=== PATIENT | female | born 1990 | race Caucasian/White ===

== ENCOUNTER 2017-03-11 23:06 | Emergency (ER) | payer OTHER ==
[~2017-03-11] VITALS: Ht 160 cm; Wt 124.2 kg
[~2017-03-11 23:06] MED LIST: CLOT1CRE TOP; FLUO40CA PO; NYST100024 TOP
[2017-03-11 23:08] VITALS: BP 123/73; PULSE 93; RESP 16; TEMP 98; O2SAT 100
[2017-03-11] MEDS ORDERED: SODIUM CHLOR 0.9% 1000 ML INJ 1,000 ML IV SCH (23:37)
--- NOTE | 2017-03-11 23:38 | PD ---
HPI Chief Complaint: GI Complaint Time Seen by Provider: 23:36 Travel History International Travel<30 days: No Contact w/Intl Traveler<30days: No Traveled to known affect area: No History of Present Illness HPI The patient is a 26-year-old female that complains of nausea for 2 weeks. She denies any vomiting. She denies any abdominal pain, fever or diarrhea. She denies any cough or sore throat. Her last missed her period was the of last month and normal. She has had no abdominal surgery and still has her appendix and gallbladder. PFSH Past Medical History Blood Disorders: No Anxiety: Yes Depression: Yes Diminished Hearing: No Hypertension: Yes Reproductive: Yes (DYSFUNCTIONAL UTERINE BLEEDING IN PAST) Immunizations Current: Yes Migraines: Yes : 0 Social History Alcohol Use: No Tobacco Use: Yes (2- PPD) Substance Use: No Allergies-Medications (Allergen,Severity, Reaction): Coded Allergies: Amoxicillin (Verified Allergy, Severe, Hives, 07/02/16) Penicillin (Verified Allergy, Mild, Hives, 07/02/16) Uncoded Allergies: CANTELOPE MELON (Allergy, Mild, Hives, 07/26/11) HONEYDEW (Allergy, Mild, Hives, 07/26/11) Reported Meds & Prescriptions Reported Meds & Active Scripts Active No Active Prescriptions or Reported Medications Review of Systems Except as stated in HPI: all other systems reviewed are Neg Physical Exam Narrative GENERAL: The patient is alert, fairly well-hydrated, obese in no apparent distress except for the nausea. Her vital signs are normal. SKIN: Focused skin assessment warm/dry. HEAD: Atraumatic. Normocephalic. EYES: Pupils equal and round. No scleral icterus. No injection or drainage. ENT: No nasal bleeding or discharge. Mucous membranes pink and moist. NECK: Trachea midline. No JVD. CARDIOVASCULAR: Regular rate and rhythm. No murmur appreciated. RESPIRATORY: No accessory muscle use. Clear to auscultation. Breath sounds equal bilaterally. GASTROINTESTINAL: Abdomen soft, non-tender, nondistended. Hepatic and splenic margins not palpable. No guarding or rebound is present. Valencia's sign is negative. MUSCULOSKELETAL: No obvious deformities. No clubbing. No cyanosis. No edema. NEUROLOGICAL: Awake and alert. No obvious cranial nerve deficits. Motor grossly within normal limits. Normal speech. PSYCHIATRIC: Appropriate mood and affect; insight and judgment normal. Data Data Last Documented VS Vital Signs Date Time Temp Pulse Resp B/P Pulse Ox O2 Delivery O2 Flow Rate FiO2 03/12/17 00:05 16 03/12/17 00:00 99 Room Air 03/12/17 00:00 86 143/83 03/11/17 23:08 98.0 Orders Beta Hcg (Quant/Titer) (03/11/17 23:37) Complete Blood Count With Diff (03/11/17 23:37) Comprehensive Metabolic Panel (03/11/17 23:37) Lipase (03/11/17 23:37) Urinalysis - C+S If Indicated (03/11/17 23:37) Iv Access Insert/Monitor (03/11/17 23:37) Ecg Monitoring (03/11/17:37) Oximetry (03/11/17 23:37) Ondansetron Inj (Zofran Inj) (03/11/17 23:45) Sodium Chlor 0.9% 1000 Ml Inj (Ns 1000 M (03/11/17 23:37) Sodium Chloride 0.9% Flush (Ns Flush) (03/11/17 23:45) Labs Laboratory Tests Test 03/12/17 00:10 White Blood Count 13.1 TH/MM3 Red Blood Count 4.66 MIL/MM3 Hemoglobin 13.4 GM/DL Hematocrit 40.7 % Mean Corpuscular Volume 87.3 FL Mean Corpuscular Hemoglobin 28.7 PG Mean Corpuscular Hemoglobin 32.8 % Concent Red Cell Distribution Width 13.3 % Platelet Count 227 TH/MM3 Mean Platelet Volume 10.4 FL Neutrophils (%) (Auto) 65.0 % Lymphocytes (%) (Auto) 23.8 % Monocytes (%) (Auto) 6.4 % Eosinophils (%) (Auto) 2.6 % Basophils (%) (Auto) 2.2 % Neutrophils # (Auto) 8.6 TH/MM3 Lymphocytes # (Auto) 3.1 TH/MM3 Monocytes # (Auto) 0.8 TH/MM3 Eosinophils # (Auto) 0.3 TH/MM3 Basophils # (Auto) 0.3 TH/MM3 CBC Comment DIFF FINAL Differential Comment Urine Color YELLOW Urine Turbidity CLEAR Urine pH 6.5 Urine Specific [place] 1.025 Urine Protein TRACE mg/dL Urine Glucose (UA) NEG mg/dL Urine Ketones NEG mg/dL Urine Occult Blood NEG Urine Nitrite NEG Urine Bilirubin NEG Urine Leukocyte Esterase NEG Urine RBC 0-2 /hpf Urine WBC 0-2 /hpf Urine Squamous Epithelial 0-5 /hpf Cells Urine Bacteria NONE /hpf Microscopic Urinalysis Comment CULT NOT INDICATED Sodium Level 142 MEQ/L Potassium Level 3.9 MEQ/L Chloride Level 109 MEQ/L Carbon Dioxide Level 23.0 MEQ/L Anion Gap 10 MEQ/L Blood Urea Nitrogen 13 MG/DL Creatinine 0.64 MG/DL Estimat Glomerular Filtration 112 ML/MIN Rate Random Glucose 105 MG/DL Calcium Level 8.5 MG/DL Total Bilirubin 0.2 MG/DL Aspartate Amino Transf 17 U/L (AST/SGOT) Alanine Aminotransferase 21 U/L (ALT/SGPT) Alkaline Phosphatase 77 U/L Total Protein 7.0 GM/DL Albumin 3.4 GM/DL Lipase 142 U/L Human Chorionic Gonadotropin, 152 MIU/ML Quant MDM Medical Decision Making Medical Screen Exam Complete: Yes Emergency Medical Condition: Yes Medical Record Reviewed: Yes Interpretation(s) The CBC shows a white count of 13,100 but is otherwise unremarkable. The complete metabolic profile is normal. The beta-hCG is 152. The urine shows specific gravity 1.0-5 with trace protein but is otherwise normal and culture is not indicated. Differential Diagnosis , pancreatitis, nausea etiology undetermined, electrolyte disorder, colitis, appendicitishighly unlikely, acute cholecystitishighly unlikely Narrative Course The patient appears to be an early . I do not believe this is the cause of her nausea however. Possibilities for her nausea include viral syndrome, gallbladder diseasethere is no evidence on the blood work or physical exam for gallbladder disease. She should follow-up with her primary care physician this week or early next week. She should follow-up with an boxing inspector. She will be given Zofran 4 mg. Diagnosis Primary Impression: Nausea alone Additional Impression: Additional Instructions: Follow-up with your primary care physician this week or early next week. It is also necessary to follow-up with an boxing inspector. Stay well-hydrated drinking clear liquids and try to stay away from fatty foods as best you can. Med/Other Pt SpecificInfo: Prescription(s) given Scripts Ondansetron (Zofran)4 Mg Tab4 Mg PO Q6HR PRN (NAUSEA OR VOMITING) #28 TAB Ref 0 Prov:Kwabena Young MD 03/12/17 Disposition: 01 DISCHARGE HOME Condition: Stable Kwabena Young MD Mar 11, 2017 23:38
[2017-03-11] MEDS ORDERED: ONDANSETRON HCL 4 MG/2 ML VIAL IVP ONE (23:45)
[2017-03-11] MEDS ORDERED: SODIUM CHLORIDE 0.9% FLUSH 10 ML FLUSH IV FLUSH PRN (23:45)
[2017-03-12] VITALS: BP 143/83; PULSE 86; RESP 16; O2SAT 99
[2017-03-12 00:32] LABS: AUTOMATED NEUTROPHIL # 8.6 TH/MM3 (1.8-7.7); BASOPHIL # 0.3 TH/MM3 (0-0.2); BASOPHIL % 2.2 % (0.0-2.0); EOSINOPHIL # 0.3 TH/MM3 (0-0.4); EOSINOPHIL % 2.6 % (0.0-4.0); HEMATOCRIT 40.7 % (35.0-46.0); LYMPH % 23.8 % (9.0-44.0); LYMPHOCYTE # 3.1 TH/MM3 (1.0-4.8); MEAN CELL VOLUME 87.3 FL (80.0-100.0); MEAN CORPUSCULAR HEMOGLOBIN 28.7 PG (27.0-34.0); MEAN CORPUSCULAR HGB CONC 32.8 % (32.0-36.0); MONO % 6.4 % (0.0-8.0); PLATELET COUNT 227 TH/MM3 (150-450); RED BLOOD COUNT 4.66 MIL/MM3 (4.00-5.30); RED CELL DISTRIBUTION WIDTH 13.3 % (11.6-17.2); WHITE BLOOD COUNT 13.1 TH/MM3 (4.0-11.0)
[2017-03-12 00:34] LABS: BLOOD, URINE NEG (NEG); GLUCOSE,URINE NEG (NEG); KETONE, URINE NEG (NEG); NITRITE,URINE NEG (NEG); PH, URINE 6.5 (5.0-8.5)
[2017-03-12 00:40] LABS: CHLORIDE 109 MEQ/L (98-107); SODIUM (NA) 142 MEQ/L (136-145)
[2017-03-12 00:44] LABS: ANION GAP 10 MEQ/L (5-15); BLOOD UREA NITROGEN 13 MG/DL (7-18); HEMO FLAGS DIFF FINAL
[2017-03-12 00:45] LABS: POTASSIUM 3.9 MEQ/L (3.5-5.1)
[2017-03-12 00:47] LABS: ALT (GPT) 21 U/L (10-53); AST (GOT) 17 U/L (15-37); GLOMERULAR FILTRATION RATE 112 ML/MIN (>89); RBC, URINE 0-2 /hpf (0-3); URINE COLOR YELLOW (YELLW/STRAW); WBC, URINE 0-2 /hpf (0-5)
[2017-03-12 00:48] LABS: COMMENT (UR) CULT NOT INDICATED; CULTURE IF INDICATED CULT NOT INDICATED; SQUAMOUS EPITHELIAL CELL URINE 0-5 /hpf (0-5)
[2017-03-12 00:49] LABS: TOTAL BILIRUBIN ADULT 0.2 MG/DL (0.2-1.0)
[2017-03-12 00:50] LABS: ALKALINE PHOSPHATASE 77 U/L (45-117)
[2017-03-12 00:52] LABS: BETA HCG QUANT 152 MIU/ML (0-5)
[2017-03-12 01:00] VITALS: BP 151/72; PULSE 86; RESP 16; O2SAT 99
[2017-03-12] MEDS ORDERED: ZOFR4TAB PO (01:04)
[2017-05-06] MEDS ORDERED: PRENTAB85 PO (11:17)
== END 2017-03-12 01:42 | disposition home or self-care (01) ==
LOC: PHED 23:06
DX: R11.0 Nausea (principal); I10 Essential (primary) hypertension; F17.200 Nicotine dependence, unspecified, uncomplicated; Z33.1 Pregnant state, incidental; Z3A.00 Weeks of gestation of pregnancy not specified; Z86.59 Personal history of other mental and behavioral disorders; Z87.42 Personal history of other diseases of the female genital tract
CPT/HCPCS: 80053; 81001; 83690; 84702; 85025; 96361; 96374; 99283; J2405; J7030

== ENCOUNTER 2017-03-17 20:20 | Emergency (ER) | payer MEDICAID, OTHER ==
[~2017-03-17] VITALS: Ht 160 cm; Wt 125.7 kg
[~2017-03-17 20:20] MED LIST changes: -CLOT1CRE TOP; -FLUO40CA PO; -NYST100024 TOP; +ZOFR4TAB PO
[2017-03-17 20:29] VITALS: BP 139/81; PULSE 98; RESP 16; TEMP 98.6; O2SAT 98
[2017-03-17] MEDS ORDERED: CEFT500T3 PO (20:49)
[2017-03-17] MEDS ORDERED: ZOFR4TAB3 SL (20:49)
--- NOTE | 2017-03-17 20:54 | PD ---
HPI Chief Complaint: Cold / Flu Symptoms Time Seen by Provider: 20:49 Travel History International Travel<30 days: No Contact w/Intl Traveler<30days: No Traveled to known affect area: No History of Present Illness HPI 26-year-old female presents with one week history of increasing upper respiratory symptoms including headache, left ear pain, postnasal drip, cough. Patient is 5 weeks . Patient denies shortness of breath or wheezing. Patient does have nausea but deficits associated with her . She was recently prescribed Zofran which seems to be helping. She denies significant fever, vomiting, or diarrhea. She is allergic to amoxicillin and penicillin. She is also allergic to melon. PFSH Past Medical History Blood Disorders: No Anxiety: Yes Depression: Yes Diminished Hearing: No Hypertension: Yes Reproductive: Yes (DYSFUNCTIONAL UTERINE BLEEDING IN PAST) Immunizations Current: Yes Migraines: Yes ?: : 0 Social History Alcohol Use: No Tobacco Use: Yes (6 CIGS/DAY) Substance Use: No Allergies-Medications (Allergen,Severity, Reaction): Coded Allergies: Amoxicillin (Verified Allergy, Severe, Hives, 03/17/17) Penicillin (Verified Allergy, Mild, Hives, 03/17/17) Uncoded Allergies: CANTELOPE MELON (Allergy, Mild, Hives, 07/26/11) HONEYDEW (Allergy, Mild, Hives, 07/26/11) Reported Meds & Prescriptions Reported Meds & Active Scripts Active Zofran (Ondansetron HCl) 4 Mg Tab 4 Mg PO Q6HR PRN Review of Systems General / Constitutional: Positive: Chills, No: Fever Eyes: No: Visual changes HENT: Positive: Headaches, Sore Throat, Rhinitis, Rhinorrhea, Congestion, Earache, No: Neck Stiffness, Neck Pain, Gingival Bleeding, Dental Difficulties , Ear Discharge Cardiovascular: No: Chest Pain or Discomfort Respiratory: Positive: Cough, No: Shortness of Breath, Wheezing Gastrointestinal: Positive: Nausea, No: Vomiting, Diarrhea, Abdominal Pain Genitourinary: No: Dysuria Musculoskeletal: No: Pain Skin: No Rash Neurologic: No: Weakness Psychiatric: No: Depression Endocrine: No: Polydipsia Hematologic/Lymphatic: No: Easy Bruising Physical Exam Narrative GENERAL: Patient appears in mild distress. SKIN: Warm and dry. Normal color. Normal turgor. HEAD: Atraumatic. Normocephalic. EYES: Pupils equal and round. No scleral icterus. No injection or drainage. ENT: No nasal bleeding moderate clear to milky discharge. Mucous membranes pink and moist. Right TM appears somewhat dull, left TM shows erythema, dullness, and loss of landmarks. Patient has mild sinus tenderness in both frontal and maxillary sinuses. Os tear pharynx has mild erythema cobblestoning and postnasal drip noted. NECK: Trachea midline. No JVD. CARDIOVASCULAR: Regular rate and rhythm. RESPIRATORY: No accessory muscle use. Clear to auscultation. Breath sounds equal bilaterally. GASTROINTESTINAL: Abdomen soft, non-tender, nondistended. Hepatic and splenic margins not palpable. MUSCULOSKELETAL: Extremities without clubbing, cyanosis, or edema. No obvious deformities. NEUROLOGICAL: Awake and alert. No obvious cranial nerve deficits. Motor grossly within normal limits. Five out of 5 muscle strength in the arms and legs. Normal speech. PSYCHIATRIC: Appropriate mood and affect; insight and judgment normal. Data Data Last Documented VS Vital Signs Date Time Temp Pulse Resp B/P Pulse Ox O2 Delivery O2 Flow Rate FiO2 03/17/17 20:29 98.6 98 16 139/81 98 MDM Medical Decision Making Medical Screen Exam Complete: Yes Emergency Medical Condition: Yes Differential Diagnosis Upper respiratory infection. Otitis media. Sinusitis. Postnasal drip. Cough. Narrative Course Patient is medically stable at time of exam. Patiently treated with Ceftin 500 mg twice a day 10 days. Patient should use saline nasal spray frequently to improve sinus drainage. Patient can use plain guaifenesin/Robitussin as needed for cough. Patient states Tylenol as needed for fever chills or aches. Patient is given a prescription for Zofran ODT 4 mg 1 every 6 hours when necessary nausea #15. Patient should follow with her CUSTODIAN MANAGER or primary care physician as needed. Patient can return to the emergency department worsening symptoms as necessary. Diagnosis Primary Impression: Sinusitis nasal Qualified Code: J01.40 - Acute non-recurrent pansinusitis Additional Impression: Qualified Code: Z3A.01 - Less than 8 weeks gestation of Referrals: Primary Care Physician Patient Instructions: General Instructions, Sinusitis (ED) Additional Instructions: Patiently treated with Ceftin 500 mg twice a day 10 days. Patient should use saline nasal spray frequently to improve sinus drainage. Patient can use plain guaifenesin/Robitussin as needed for cough. Patient states Tylenol as needed for fever chills or aches. Patient is given a prescription for Zofran ODT 4 mg 1 every 6 hours when necessary nausea #15. Patient should follow with her CUSTODIAN MANAGER or primary care physician as needed. Patient can return to the emergency department worsening symptoms as necessary. Med/Other Pt SpecificInfo: Prescription(s) given Scripts Ondansetron Odt (Zofran Odt)4 Mg Tab4 Mg SL Q6HR PRN (Nausea/Vomiting) #15 TAB Prov:Joao Barba MD 03/17/17 Cefuroxime (Ceftin)500 Mg [id number] Mg PO BID 10 Days Ref 0 Prov:Joao Barba MD 03/17/17 Disposition: 01 DISCHARGE HOME Condition: Stable Silvestre Hunter Mar 17, 2017 20:54
[2017-05-06] MEDS ORDERED: PRENTAB85 PO (11:17)
== END 2017-03-17 21:05 | disposition home or self-care (01) ==
LOC: PHEFT 20:20
DX: O26.91 Pregnancy related conditions, unspecified, first trimester (principal); R05 Cough; J02.9 Acute pharyngitis, unspecified; J31.0 Chronic rhinitis; J34.89 Other specified disorders of nose and nasal sinuses; H92.02 Otalgia, left ear; Z3A.01 Less than 8 weeks gestation of pregnancy
CPT/HCPCS: 99283

== ENCOUNTER → 2017-05-07 | Outpatient (CLI) | payer MEDICAID ==
[~2017-05-07] MED LIST changes: +PRENTAB85 PO; -ZOFR4TAB PO
== END ==
LOC: HPND 14:30
PROVIDERS: ATTEND Family Medicine
DX: O36.80X0 Pregnancy with inconclusive fetal viability, not applicable or unspecified (principal); Z3A.12 12 weeks gestation of pregnancy
CPT/HCPCS: 76801

== ENCOUNTER 2017-05-08 00:28 | Emergency (ER) | payer MEDICAID ==
[~2017-05-08] VITALS: Ht 160 cm; Wt 125.1 kg
[2017-05-08 00:34] VITALS: BP 135/94; PULSE 86; RESP 16; TEMP 98.3; O2SAT 99
[2017-05-08 01:43] VITALS: BP 142/72; PULSE 82; RESP 17; O2SAT 98
--- NOTE | 2017-05-08 01:43 | PD ---
HPI Chief Complaint: Related Problem Time Seen by Provider: 00:42 Travel History International Travel<30 days: No Contact w/Intl Traveler<30days: No Traveled to known affect area: No History of Present Illness HPI So 26-year-old woman who presents to the emergency department complaining of bleeding in the setting of . She states she is about 12 weeks with an EDC of 11/17. Is her first . She's done well and sees Dr. Infante, with the family medicine residents. She comes in today because she started having some bright red blood per vagina this evening dose before presenting. No vaginal discharge. She is urinating a little more than normal but no other urinary symptoms. No other complaints. History Past Medical History Narrative Medical Depression Tetanus Vaccination: < 5 Years Influenza Vaccination: No LMP: february 09 : 0 Social History Alcohol Use: No Tobacco Use: Yes (6 CIGS/DAY) Allergies-Medications (Allergen,Severity, Reaction): Coded Allergies: Amoxicillin (Verified Allergy, Severe, Hives, 05/08/17) Penicillin (Verified Allergy, Mild, Hives, 05/08/17) Uncoded Allergies: CANTELOPE MELON (Allergy, Mild, Hives, 07/26/11) HONEYDEW (Allergy, Mild, Hives, 07/26/11) Reported Meds & Prescriptions Reported Meds & Active Scripts Active Reported Pnv Plus Multivi 27-1 mg ( Vit W/ Ferrous Fumara) 1 Tab Tab 1 Tab PO DAILY Review of Systems Except as stated in HPI: all other systems reviewed are Neg Physical Exam Narrative GENERAL: Well-appearing obese 26-year-old woman, no acute distress. SKIN: Focused skin assessment warm/dry. CARDIOVASCULAR: Regular rate and rhythm. No murmur appreciated. RESPIRATORY: No accessory muscle use. Clear to auscultation. Breath sounds equal bilaterally. GASTROINTESTINAL: Abdomen is obese and soft. MUSCULOSKELETAL: No obvious deformities. No clubbing. No cyanosis. No edema. NEUROLOGICAL: Awake and alert. No obvious cranial nerve deficits. Motor grossly within normal limits. Normal speech. PSYCHIATRIC: Tearful. : Normal external female genitalia. Thin red blood in the vaginal vault. Cervix is normal-appearing with a little bit of mucoid discharge. Data Data Last Documented VS Vital Signs Date Time Temp Pulse Resp B/P Pulse Ox O2 Delivery O2 Flow Rate FiO2 05/08/17 01:43 82 17 142/72 98 Room Air 05/08/17 00:34 98.3 Orders Beta Hcg (Quant/Titer) (05/08/17 00:36) Ed Poc Ultrasound (05/08/17 00:36) Complete Rh (05/08/17 00:37) Gc And Chlamydia Pcr (05/08/17 01:50) Wet Prep Profile (05/08/17 01:50) Labs Laboratory Tests Test 05/08/17 05/08/17 00:50 01:50 Human Chorionic Gonadotropin, 33924 MIU/ML Quant Blood Type O POSITIVE Rho(D) Type POSITIVE Clue Cells (Wet Prep) NONE SEEN Vaginal Trichomonas (Wet Prep) NONE SEEN Vaginal Yeast (Wet Prep) NONE SEEN MDM Medical Decision Making Medical Screen Exam Complete: Yes Emergency Medical Condition: Yes Interpretation(s) Wet prep negative Rh+ HCG 43,000 Differential Diagnosis Threatened AB, subchorionic hemorrhage, cervicitis, other Narrative Course Medical decision making 26 showed woman with threatened AB at 12 weeks . She looks well. Bedside ultrasound was reassuring. We'll check hCG, Rh. Recommend close outpatient follow-up. Procedures Procedure Narrative Point of care ultrasound: Focus transabdominal ultrasounds performed by me to evaluate for well- being. Sawyer intrauterine was identified. Measuring roughly 11 weeks 6 days by crown rump length. heart rate 152. movement seen. Diagnosis Primary Impression: Threatened affecting intrauterine Additional Instructions: Follow-up with your primary doctor today or on Thursday. Return to the emergency department for any severe abdominal cramping, bleeding more than 1 pad per hour, or any other new or worsening symptoms. Continue vitamins. Med/Other Pt SpecificInfo: No Change to Meds Disposition: DISCHARGE HOME Condition: Stable Dawson Reyes MD May 08, 2017 01:43
[2017-05-08 01:50] LABS: BETA HCG QUANT 43415 MIU/ML (0-5)
[2017-05-08 02:40] VITALS: BP 132/78; PULSE 83; RESP 19; O2SAT 97
[2017-05-08 11:28] LABS: CHLAMYDIA PCR NOT DETECTED (NOT DETECT); NEISSERIA PCR NOT DETECTED (NOT DETECT)
== END 2017-05-08 03:13 | disposition home or self-care (01) ==
LOC: PHED 00:28
DX: O20.0 Threatened abortion (principal); Z3A.12 12 weeks gestation of pregnancy
CPT/HCPCS: 84702; 86901; 87210; 87491; 87591; 99283

== ENCOUNTER → 2017-05-13 | Outpatient (CLI) | payer MEDICAID | LOC: HPND 10:58 | PROVIDERS: ATTEND Family Medicine | DX: O28.3 Abnormal ultrasonic finding on antenatal screening of mother (principal); Z36 Encounter for antenatal screening of mother; Z3A.13 13 weeks gestation of pregnancy | CPT/HCPCS: 36416; 76813 ==

== ENCOUNTER → 2017-06-17 | Outpatient (CLI) | payer MEDICAID ==
[~2017-06-17] MED LIST changes: +HYDR1CAP30 PO
== END ==
LOC: HPND 10:30
PROVIDERS: ATTEND Family Medicine
DX: O28.3 Abnormal ultrasonic finding on antenatal screening of mother (principal)
CPT/HCPCS: 76811

== ENCOUNTER → 2017-07-15 | Outpatient (CLI) | payer MEDICAID ==
[~2017-07-15] MED LIST changes: +INFL1INJ53 IM; +INFL1INJ56 IM; +TETA1INJ6 IM
== END ==
LOC: HPND 12:54
PROVIDERS: ATTEND Family Medicine
DX: O99.212 Obesity complicating pregnancy, second trimester (principal); O43.192 Other malformation of placenta, second trimester; O28.3 Abnormal ultrasonic finding on antenatal screening of mother; E66.01 Morbid (severe) obesity due to excess calories; Z68.42 Body mass index [BMI] 45.0-49.9, adult
CPT/HCPCS: 76816; 76825; 76827; 93325

== ENCOUNTER → 2017-08-18 | Outpatient (CLI) | payer MEDICAID | LOC: HPND 13:04 | PROVIDERS: ATTEND Family Medicine | DX: O35.8XX0 Maternal care for other (suspected) fetal abnormality and damage, not applicable or unspecified (principal); O99.212 Obesity complicating pregnancy, second trimester; E66.01 Morbid (severe) obesity due to excess calories; Z68.42 Body mass index [BMI] 45.0-49.9, adult | CPT/HCPCS: 76816 ==

== ENCOUNTER 2017-08-28 03:00 | Emergency (ER) | payer MEDICAID ==
[~2017-08-28] VITALS: Ht 160 cm; Wt 126.3 kg
[~2017-08-28 03:00] MED LIST changes: -INFL1INJ53 IM; -INFL1INJ56 IM; -TETA1INJ6 IM
[2017-08-28 03:08] VITALS: BP 134/88; PULSE 96; RESP 16; TEMP 97.9; O2SAT 99
--- NOTE | 2017-08-28 03:36 | PD ---
HPI Chief Complaint: General Weakness Time Seen by Provider: 03:24 Travel History International Travel<30 days: No Contact w/Intl Traveler<30days: No Traveled to known affect area: No History of Present Illness HPI The patient is a 27-year-old female, G1, P0, A0 who for the past 3 hours has felt weak. She left work because she felt too weak to work. She has brief episodes of vertigo. She does have a slight headache of gradual onset on the left parietal area. She denies any fever but does have slight nausea. There is no vomiting. She has had diarrhea for the past 2 days. She did not faint but felt like she was going to faint. The vertigo has now subsided. PFSH Past Medical History Blood Disorders: No Anxiety: Yes Depression: Yes Diminished Hearing: No Hypertension: Yes Reproductive: Yes (DYSFUNCTIONAL UTERINE BLEEDING IN PAST) Immunizations Current: Yes Migraines: Yes Tetanus Vaccination: < 5 Years Influenza Vaccination: No ?: LMP: 7months ago : 0 Social History Alcohol Use: No Tobacco Use: Yes (6 CIGS/DAY) Substance Use: No Allergies-Medications (Allergen,Severity, Reaction): Coded Allergies: amoxicillin (Unverified Allergy, Severe, Hives, 08/28/17) penicillin G (Unverified Allergy, Mild, Hives, 08/28/17) Uncoded Allergies: CANTELOPE MELON (Allergy, Mild, Hives, 07/26/11) HONEYDEW (Allergy, Mild, Hives, 07/26/11) Reported Meds & Prescriptions Reported Meds & Active Scripts Active Pnv Plus Multivi 27-1 mg ( Vit W/ Ferrous Fumara) 1 Tab Tab 1 Tab PO DAILY Physical Exam Narrative GENERAL: The patient is morbidly obese, alert, oriented 3 in minimal apparent distress with her weakness. Her vital signs are normal. Orthostatics are normal. SKIN: Focused skin assessment warm/dry. HEAD: Atraumatic. Normocephalic. Pupils equal and round.0 No scleral icterus. No injection or drainage. ENT: No nasal bleeding or discharge. Mucous membranes pink and moist. NECK: Trachea midline. No JVD. CARDIOVASCULAR: Regular rate and rhythm. No murmur appreciated. RESPIRATORY: No accessory muscle use. Clear to auscultation. Breath sounds equal bilaterally. GASTROINTESTINAL: Abdomen soft, with slight discomfort to direct palpation in the bilateral lower quadrants, nondistended. Hepatic and splenic margins not palpable. No guarding or rebound is present. The uterus is enlarged consistent with a seven-month MUSCULOSKELETAL: No obvious deformities. No clubbing. No cyanosis. No edema. NEUROLOGICAL: Awake and alert. No obvious cranial nerve deficits. Motor grossly within normal limits. Normal speech. PSYCHIATRIC: Appropriate mood and affect; insight and judgment normal. Data Data Last Documented VS Vital Signs Date Time Temp Pulse Resp B/P (MAP) Pulse Ox O2 Delivery O2 Flow Rate FiO2 08/28/17 03:44 74 18 134/67 (89) 78 18 142/85 (104) 08/28/17 03:21 99 Room Air 08/28/17 03:08 97.9 Orders Orders Complete Blood Count With Diff (08/28/17 04:00) Comprehensive Metabolic Panel (08/28/17 04:00) Sodium Chlor 0.9% 1000 Ml Inj (Ns 1000 M (08/28/17 04:00) Urinalysis - C+S If Indicated (08/28/17 04:02) Labs Laboratory Tests Test 08/28/17 03:45 White Blood Count 10.2 TH/MM3 Red Blood Count 4.23 MIL/MM3 Hemoglobin 11.9 GM/DL Hematocrit 35.2 % Mean Corpuscular Volume 83.1 FL Mean Corpuscular Hemoglobin 28.1 PG Mean Corpuscular Hemoglobin Concent 33.8 % Red Cell Distribution Width 13.3 % Platelet Count 164 TH/MM3 Mean Platelet Volume 9.8 FL Neutrophils (%) (Auto) 71.0 % Lymphocytes (%) (Auto) 22.0 % Monocytes (%) (Auto) 6.4 % Eosinophils (%) (Auto) 0.5 % Basophils (%) (Auto) 0.1 % Neutrophils # (Auto) 7.2 TH/MM3 Lymphocytes # (Auto) 2.2 TH/MM3 Monocytes # (Auto) 0.7 TH/MM3 Eosinophils # (Auto) 0.1 TH/MM3 Basophils # (Auto) 0.0 TH/MM3 CBC Comment DIFF FINAL Differential Comment Urine Color YELLOW Urine Turbidity CLEAR Urine pH 5.5 Urine Specific [place] 1.009 Urine Protein NEG mg/dL Urine Glucose (UA) NEG mg/dL Urine Ketones NEG mg/dL Urine Occult Blood NEG Urine Nitrite NEG Urine Bilirubin NEG Urine Leukocyte Esterase NEG Urine RBC 0-2 /hpf Urine WBC 0-2 /hpf Urine Squamous Epithelial Cells 0-5 /hpf Urine Bacteria OCC /hpf Microscopic Urinalysis Comment CULT NOT INDICATED Blood Urea Nitrogen 4 MG/DL Creatinine 0.48 MG/DL Random Glucose 85 MG/DL Total Protein 6.8 GM/DL Albumin 2.8 GM/DL Calcium Level 8.7 MG/DL Alkaline Phosphatase 115 U/L Aspartate Amino Transf (AST/SGOT) 14 U/L Alanine Aminotransferase (ALT/SGPT) 18 U/L Total Bilirubin 0.2 MG/DL Sodium Level 136 MEQ/L Potassium Level 3.6 MEQ/L Chloride Level 104 MEQ/L Carbon Dioxide Level 23.5 MEQ/L Anion Gap 9 MEQ/L Estimat Glomerular Filtration Rate 155 ML/MIN MDM Medical Decision Making Medical Screen Exam Complete: Yes Emergency Medical Condition: Yes Medical Record Reviewed: Yes Interpretation(s) The complete metabolic profile shows an albumin of 2.8 but is otherwise unremarkable. The urinalysis shows occasional bacteria but is otherwise normal and culture is not indicated. The CBC is normal. Differential Diagnosis Weakness of , viral gastroenteritis, dehydration, electrolyte disorder , hypo-/hyperglycemia, renal insufficiency Narrative Course The patient may have been slightly dehydrated. She is given a work excuse. She is to increase her liquid intake at home. Diagnosis Primary Impression: Mild dehydration Additional Impressions: Generalized weakness Additional Instructions: As we discussed, follow-up with your clinic clerk and increase liquid intake. Med/Other Pt SpecificInfo: No Change to Meds Disposition: 01 DISCHARGE HOME Condition: Stable Kwabena Young MD Aug 28, 2017 03:36
[2017-08-28 03:44] VITALS: BP_SYST 134; BP_SYST 142; BP_DIAS 67; BP_DIAS 85; RESP 18
[2017-08-28] MEDS ORDERED: ONDANSETRON HCL 4 MG/2 ML VIAL IV ONE (04:00)
[2017-08-28 04:10] LABS: BLOOD, URINE NEG (NEG); GLUCOSE,URINE NEG (NEG); KETONE, URINE NEG (NEG); NITRITE,URINE NEG (NEG); PH, URINE 5.5 (5.0-8.5)
[2017-08-28 04:11] LABS: AUTOMATED NEUTROPHIL # 7.2 TH/MM3 (1.8-7.7); BASOPHIL % 0.1 % (0.0-2.0); EOSINOPHIL # 0.1 TH/MM3 (0-0.4); EOSINOPHIL % 0.5 % (0.0-4.0); HEMATOCRIT 35.2 % (35.0-46.0); HEMO FLAGS DIFF FINAL; LYMPHOCYTE # 2.2 TH/MM3 (1.0-4.8); MEAN CELL VOLUME 83.1 FL (80.0-100.0); MEAN CORPUSCULAR HEMOGLOBIN 28.1 PG (27.0-34.0); MEAN CORPUSCULAR HGB CONC 33.8 % (32.0-36.0); MONO % 6.4 % (0.0-8.0); PLATELET COUNT 164 TH/MM3 (150-450); RED BLOOD COUNT 4.23 MIL/MM3 (4.00-5.30); RED CELL DISTRIBUTION WIDTH 13.3 % (11.6-17.2); WHITE BLOOD COUNT 10.2 TH/MM3 (4.0-11.0)
[2017-08-28 04:16] LABS: URINE COLOR YELLOW (YELLW/STRAW)
[2017-08-28 04:17] LABS: BACTERIA, URINE OCC /hpf; COMMENT (UR) CULT NOT INDICATED; CULTURE IF INDICATED CULT NOT INDICATED; RBC, URINE 0-2 /hpf (0-3); SQUAMOUS EPITHELIAL CELL URINE 0-5 /hpf (0-5); WBC, URINE 0-2 /hpf (0-5)
[2017-08-28 04:22] LABS: CHLORIDE 104 MEQ/L (98-107); POTASSIUM 3.6 MEQ/L (3.5-5.1); SODIUM (NA) 136 MEQ/L (136-145)
[2017-08-28 04:26] LABS: ANION GAP 9 MEQ/L (5-15); BICARBONATE 23.5 MEQ/L (21.0-32.0); BLOOD UREA NITROGEN 4 MG/DL (7-18)
[2017-08-28 04:29] LABS: ALT (GPT) 18 U/L (10-53); AST (GOT) 14 U/L (15-37); GLOMERULAR FILTRATION RATE 155 ML/MIN (>89)
[2017-08-28 04:30] LABS: TOTAL BILIRUBIN ADULT 0.2 MG/DL (0.2-1.0)
[2017-08-28 04:32] LABS: ALKALINE PHOSPHATASE 115 U/L (45-117)
[2017-08-28] MEDS: SODIUM CHLOR 0.9% 1000 ML INJ 1,000 ML IV SCH ×2 (04:33→04:37)
[2017-08-28 04:34] VITALS: BP 140/74; PULSE 78; RESP 18; O2SAT 99
[2017-09-14] MEDS ORDERED: TETA1INJ6 IM (15:35)
[2017-09-14] MEDS ORDERED: INFL1INJ53 IM (15:48)
[2017-09-14] MEDS ORDERED: INFL1INJ56 IM (16:09)
== END 2017-08-28 05:11 | disposition home or self-care (01) ==
LOC: PHED 03:00
DX: E86.0 Dehydration (principal); R53.1 Weakness; I10 Essential (primary) hypertension; F41.9 Anxiety disorder, unspecified; F32.9 Major depressive disorder, single episode, unspecified; F17.210 Nicotine dependence, cigarettes, uncomplicated; Z88.0 Allergy status to penicillin
CPT/HCPCS: 80053; 81001; 85025; 99283; J7030

== ENCOUNTER → 2017-09-15 | Outpatient (CLI) | payer MEDICAID ==
[~2017-09-15] MED LIST changes: -HYDR1CAP30 PO
== END ==
LOC: HPND 13:04
PROVIDERS: ATTEND Family Medicine
DX: O43.193 Other malformation of placenta, third trimester (principal); O99.213 Obesity complicating pregnancy, third trimester; E66.01 Morbid (severe) obesity due to excess calories; Z68.42 Body mass index [BMI] 45.0-49.9, adult; Z3A.31 31 weeks gestation of pregnancy
CPT/HCPCS: 76816

== ENCOUNTER 2017-09-29 09:28 | Emergency (ER) | payer MEDICAID ==
[~2017-09-29] VITALS: Ht 160 cm; Wt 126.1 kg
[~2017-09-29 09:28] MED LIST changes: +BIOM30MI; +GLUCKIT15; +GLUCTES12; +LANCETS1 MI1
[2017-09-29 10:01] VITALS: BP 125/85; PULSE 87
--- NOTE | 2017-09-29 10:11 | PD ---
HPI Chief Complaint Leakage of fluid Date Seen: Sep 29, 2017 Time Seen: 10:00 Travel History International Travel<30 Days: No Contact w/Intl Traveler<30Days: No Known Affected Area: No History of Present Illness HPI Patient is a 27-year-old at 33 weeks and 0 days who presents with leakage of fluid for the past couple days. She is a patient of Dr. Infante at the [facility]. She reports that she has had leakage of fluid for the past couple days. She describes the leakage of fluid as a trickle, worse with lying down or with shifting/changing position. She describes the fluid is clear and odorless. She reports that she was having some Irvin Cabrera contractions a few days ago and has had the leakage of fluid since then. She denies any vaginal bleeding. She reports movement. She reports that she has some worsening shortness of breath and some abdominal tenderness and some swelling of her hands, feet, ankles. Otherwise review of systems negative. Weeks Gestation: 33 Para: 0 : 1 History Past Medical History Medical History: Denies Significant Hx Obstetric History Obstetric History This is her first . Past Surgical History Surgical History: No Previous Surgery Family History Narrative Family History Mother: asthma, gestation DM Maternal GP: DM2 Father: healthy Social History Narrative Social History Smoke 1 ppd x 5 years, currently down to 1 cigarette/day No alcohol or illicit drug use. Alcohol Use: No Tobacco Use: Yes Substance Abuse: No Allergies-Medications (Allergen,Severity, Reaction): Coded Allergies: amoxicillin (Verified Allergy, Severe, Hives, 09/29/17) penicillin G (Verified Allergy, Mild, Hives, 09/29/17) Uncoded Allergies: CANTELOPE MELON (Allergy, Mild, Hives, 07/26/11) HONEYDEW (Allergy, Mild, Hives, 07/26/11) Home Meds Active Scripts Parenteral Therapy Supplies (Sharpsafety Sharps Contai) 1 Mis Mis, EA .ROUTE DIRECTED, #1 0 Refills Prov:Courtney Infante MD, R3 09/29/17 Glucocom Test Strips (Glucocom Test Strips) 1 Brooke Brooke, EA .ROUTE DIRECTED for Blood Sugar Management, #1 Prov:Courtney Infante MD, R3 09/29/17 Lancets (Lancets) 1 Mis Mis, EA .ROUTE DIRECTED for Blood Sugar Management, # 1 0 Refills Prov:Courtney Infante MD, R3 09/29/17 Blood Glucose Monitoring W/Device (Glucocom Blood Glucose Mo W/Device) 1 Kit Kit , KIT .ROUTE DIRECTED for Blood Sugar Management, #1 Prov:Courtney Infante MD, R3 09/29/17 Vit W/ Ferrous Fumara (Pnv Plus Multivi 27-1 mg) 1 Tab Tab, 1 TAB PO DAILY, #90 TAB 3 Refills Prov:Courtney Infnate MD, R3 06/23/17 Review of Systems General / Constitutional: No: Fever, Chills Eyes: No: Visual changes HENT: No: Headaches Cardiovascular: Edema, No: Chest Pain or Discomfort Respiratory: Short of Breath (progressively worse) Gastrointestinal: No: Nausea, Vomiting, Abdominal Pain (tender) Genitourinary: No: Dysuria Physical Exam Blood pressure 125/85, 137/80 Heart rate 70, 77 Respirations 18 Temperature 98.9 Pain 0 Narrative GENERAL: Well-nourished, well-developed obese patient. SKIN: Warm and dry. HEAD: Normocephalic and atraumatic. EYES: No scleral icterus. No injection or drainage. ENT: No nasal drainage noted. Mucous membranes pink. Airway patent. NECK: Supple, trachea midline. No JVD. CARDIOVASCULAR: Regular rate and rhythm without murmurs, gallops, or rubs. RESPIRATORY: Breath sounds equal bilaterally. No accessory muscle use. ABDOMEN/GI: Abdomen soft, non-tender, bowel sounds present, no rebound, no guarding Gravid to 33 weeks size GENITOURINARY: External Genitalia: intact and normal in appearance Cervix: Posterior Dilatation: Closed Effacement: Thick Station: Long Membranes: Intact Uterine Contractions: Contractions every 2-5 minutes, irregular FHT's: Category: 1 Baseline: 125 Reactive: Reactive Variability: Moderate Decels: On EXTREMITIES: No cyanosis or edema. BACK: Nontender without obvious deformity. No CVA tenderness. NEUROLOGICAL: Awake and alert. Motor and sensory grossly within normal limits. Five out of 5 muscle strength in all muscle groups. Normal speech. Data Data Vital Signs Reviewed: Yes MDM Plan Patient is a 27-year-old at 33 weeks and 0 days who presents with leakage of fluid for the past couple days. Amnisure was negative. Cervical exam is long , thick, and closed. 1. LOF - Amnisure negative 2. contractions -Monitor vital signs -Encourage by mouth hydration -Monitor tocometry and heart tracing Addendum: Contractions seemed to calm down with time and by mouth hydration. Plan to discharge home. d/w Dr. Florez Diagnosis Diagnosis: Primary Impression: Vaginal discharge during Additional Impression: contractions Ruled Out: labor Disposition: 01 DISCHARGE HOME Condition: Good Jovi Oro MD R2 Sep 29, 2017 10:11
[2017-09-29 10:58] VITALS: BP 137/80; PULSE 77
== END 2017-09-29 12:18 | disposition home or self-care (01) ==
LOC: HOBED 09:28
DX: O26.893 Other specified pregnancy related conditions, third trimester (principal); N89.8 Other specified noninflammatory disorders of vagina; O99.333 Smoking (tobacco) complicating pregnancy, third trimester; F17.210 Nicotine dependence, cigarettes, uncomplicated; Z3A.33 33 weeks gestation of pregnancy
CPT/HCPCS: 59025; 84112

== ENCOUNTER 2017-10-12 21:21 | Emergency (ER) | payer MEDICAID ==
--- NOTE | 2017-10-12 22:55 | PD ---
HPI Chief Complaint orange discharge Date Seen: Oct 12, 2017 Time Seen: 22:00 Travel History International Travel<30 Days: No Contact w/Intl Traveler<30Days: No History of Present Illness HPI Ms. Burgos is a at 34/6 weeks with no PMH presenting with complaint of orange discharge. She states that it started today while she was at work. She felt leakage and went to the restroom to find orange discharge ranging in color from dark orange to light orange. She denies any bleeding, any new medication, no change in diet. She feels that she is also having contractions in the sides of her abdomen and low back pain that she has not experienced before. She has felt the baby move, no dysuria, no leakage of amniotic fluid. Weeks Gestation: 34 History Past Medical History Narrative Medical failed 1 hour GTT, has yet to get 3 hour test Medical History: Denies Significant Hx Past Surgical History Surgical History: No Previous Surgery Family History Family History: Negative Social History Alcohol Use: No Tobacco Use: No (quit when she found out she was ) Substance Abuse: No Allergies-Medications (Allergen,Severity, Reaction): Coded Allergies: amoxicillin (Verified Allergy, Severe, Hives, 09/29/17) penicillin G (Verified Allergy, Mild, Hives, 09/29/17) Uncoded Allergies: CANTELOPE MELON (Allergy, Mild, Hives, 07/26/11) HONEYDEW (Allergy, Mild, Hives, 07/26/11) Home Meds Active Scripts Parenteral Therapy Supplies (Sharpsafety Sharps Contai) 1 Mis Mis, EA .ROUTE DIRECTED, #1 0 Refills Prov:Courtney Infante MD, R3 09/29/17 Glucocom Test Strips (Glucocom Test Strips) 1 Brooke Brooke, EA .ROUTE DIRECTED for Blood Sugar Management, #1 Prov:Courtney Infante MD, R3 09/29/17 Lancets (Lancets) 1 Mis Mis, EA .ROUTE DIRECTED for Blood Sugar Management, # 1 0 Refills Prov:Courtney Infante MD, R3 09/29/17 Blood Glucose Monitoring W/Device (Glucocom Blood Glucose Mo W/Device) 1 Kit Kit , KIT .ROUTE DIRECTED for Blood Sugar Management, #1 Prov:Corutney Infante MD, R3 09/29/17 Vit W/ Ferrous Fumara (Pnv Plus Multivi 27-1 mg) 1 Tab Tab, 1 TAB PO DAILY, #90 TAB 3 Refills Prov:Courtney Infante MD, R3 06/23/17 Review of Systems General / Constitutional: No: Fever, Chills Respiratory: No: Short of Breath Genitourinary: No: Urgency, Dysuria, Hematuria, Incontinence, Pelvic Pain, Vaginal Bleeding Physical Exam Narrative GENERAL: Well-nourished, well-developed patient. SKIN: Warm and dry. HEAD: Normocephalic and atraumatic. EYES: No scleral icterus. No injection or drainage. ENT: No nasal drainage noted. Mucous membranes pink. Airway patent. NECK: Supple, trachea midline. No JVD. CARDIOVASCULAR: Regular rate and rhythm without murmurs, gallops, or rubs. RESPIRATORY: Breath sounds equal bilaterally. No accessory muscle use. ABDOMEN/GI: Abdomen soft, non-tender, bowel sounds present, no rebound, no guarding Gravid to 34 weeks size GENITOURINARY: External Genitalia: intact and normal in appearance Cervix: thick white discharge coming from os Dilatation: closed Membranes: intact Uterine Contractions: none FHT's: Category: 1 Baseline: 140s Reactive: yes Variability: moderate Decels: none EXTREMITIES: No cyanosis or edema. BACK: Nontender without obvious deformity. No CVA tenderness. NEUROLOGICAL: Awake and alert. Motor and sensory grossly within normal limits. Normal speech. Data Data Labs Laboratory Tests Test 10/12/17 23:28 Urine Color LIGHT-ORANGE Urine Turbidity CLOUDY Urine pH 5.5 Urine Specific Fletcher 1.035 Urine Protein 30 mg/dL Urine Glucose (UA) 70 mg/dL Urine Ketones NEG mg/dL Urine Occult Blood NEG Urine Nitrite NEG Urine Bilirubin NEG Urine Urobilinogen 2.0 MG/DL Urine Leukocyte Esterase NEG Urine RBC 9 /hpf Urine Amorphous Sediment MANY Urine Mucus MOD /lpf Microscopic Urinalysis Comment CULT NOT INDICATED MDM Plan Physiologic discharge of * UA showed protein (30), glucose (70), 9 RBCs, and moderate mucus. Cx not indicated. No concern for infection. * Reassured patient that discharge was normal * Advised patient about signs of labor * Encouraged patient to come in if decreased movement, loss of fluids, or any vaginal bleeding * Follow up with OB provider, Dr. Infante, as scheduled DSW Dr. Jovi Ward and Dr. Jim Diagnosis Diagnosis: Primary Impression: Vaginal discharge in Disposition: 01 DISCHARGE HOME Condition: Arabella Chavarria MD R1 Oct 12, 2017 22:55
[2017-10-13 00:10] LABS: BLOOD, URINE NEG (NEG); COMMENT (UR) CULT NOT INDICATED; CULTURE IF INDICATED CULT NOT INDICATED; GLUCOSE,URINE 70 mg/dL (NEG); KETONE, URINE NEG (NEG); MUCUS URINE MOD /lpf (OCC); NITRITE,URINE NEG (NEG); PH, URINE 5.5 (5.0-8.5)
[2017-10-13 00:11] LABS: URINE COLOR LIGHT-ORANGE (YELLW/STRAW)
[2017-10-19] MEDS ORDERED: GLUCTES12 (07:05)
== END 2017-10-13 00:30 | disposition home or self-care (01) ==
LOC: HOBED 21:21
DX: O26.893 Other specified pregnancy related conditions, third trimester (principal); N89.8 Other specified noninflammatory disorders of vagina; Z3A.34 34 weeks gestation of pregnancy; Z88.0 Allergy status to penicillin; Z79.899 Other long term (current) drug therapy
CPT/HCPCS: 59025; 81001

== ENCOUNTER 2017-11-09 23:57 | Inpatient (IN) | payer MEDICAID ==
[~2017-11-09] VITALS: Ht 160 cm; Wt 128.0 kg
[2017-11-10] VITALS (64 sets, daily range): BP systolic 112–167; BP diastolic 59–123; PULSE 62–124; RESP 18–20; TEMP 98.2–98.9; O2SAT 98–99
[2017-11-10] MEDS ORDERED: SODIUM CHLOR 0.9% 1000 ML INJ 1,000 ML IV SCH (01:00)
[2017-11-10] MEDS: LACTATED RINGER'S 1000 ML INJ 1,000 ML IV SCH ×6 (01:00→12:26)
[2017-11-10 01:04] LABS: HEMATOCRIT 36.2 % (35.0-46.0); MEAN CELL VOLUME 80.4 FL (80.0-100.0); MEAN CORPUSCULAR HEMOGLOBIN 27.3 PG (27.0-34.0); MEAN CORPUSCULAR HGB CONC 33.9 % (32.0-36.0); PLATELET COUNT 155 TH/MM3 (150-450); RED CELL DISTRIBUTION WIDTH 15.6 % (11.6-17.2); REVIEW FLAG FINAL; WHITE BLOOD COUNT 11.9 TH/MM3 (4.0-11.0)
[2017-11-10 01:24] LABS: BACTERIA, URINE RARE /hpf; BLOOD, URINE NEG (NEG); GLUCOSE,URINE NEG (NEG); KETONE, URINE NEG (NEG); MUCUS URINE FEW /lpf (OCC); NITRITE,URINE NEG (NEG); PH, URINE 5.5 (5.0-8.5); RENAL EPITHELIAL CELLS <1 /hpf; SQUAMOUS EPITHELIAL CELL URINE 2 /hpf (0-5); URINE COLOR YELLOW (YELLW/STRAW)
[2017-11-10 01:27] LABS: COMMENT (UR) CULT NOT INDICATED; CULTURE IF INDICATED CULT NOT INDICATED
[2017-11-10 01:33] LABS: ALT (GPT) 18 U/L (10-53); ANION GAP 9 MEQ/L (5-15); AST (GOT) 15 U/L (15-37); BICARBONATE 20.6 MEQ/L (21.0-32.0); BLOOD UREA NITROGEN 7 MG/DL (7-18); CHLORIDE 109 MEQ/L (98-107); GLOMERULAR FILTRATION RATE 141 ML/MIN (>89); POTASSIUM 3.6 MEQ/L (3.5-5.1); SODIUM (NA) 139 MEQ/L (136-145)
[2017-11-10 01:35] LABS: ALKALINE PHOSPHATASE 241 U/L (45-117); TOTAL BILIRUBIN ADULT 0.2 MG/DL (0.2-1.0)
[2017-11-10] MEDS ORDERED: LACTATED RINGER'S 1000 ML INJ 1,000 ML IV PRN (01:57)
[2017-11-10] MEDS ORDERED: LIDOCAINE HCL 1% 50 ML VIAL INFIL PRN (02:00)
[2017-11-10] MEDS ORDERED: VANCOMYCIN INJ 1 GM in SODIUM CHLORIDE 0.9% INJ 250 ML IV SCH (02:00)
[2017-11-10] MEDS ORDERED: LIDOCAINE HCL 1% 50 ML VIAL I-DERMAL PRN (02:00)
[2017-11-10] MEDS ORDERED: OXYTOCIN 30 UNITS-500ML PREMIX 500 ML IV ONE (02:00)
[2017-11-10] MEDS ORDERED: CITRIC ACID-SODIUM CITRATE LIQ 30 ML UDC PO SCH (02:00)
[2017-11-10] MEDS ORDERED: OXYTOCIN 30 UNITS-500ML PREMIX 500 ML IV SCH ×2 (02:00→15:15)
[2017-11-10] MEDS ORDERED: SODIUM CHLORID 0.9% 500 ML INJ 500 ML IV PRN (02:00)
[2017-11-10] MEDS ORDERED: MINERAL OIL 10 ML VIAL TOPICAL PRN (02:00)
[2017-11-10] MEDS ORDERED: SODIUM CHLOR 0.9% 1000 ML INJ 1,000 ML IV PRN (02:17)
--- NOTE | 2017-11-10 02:44 | HHI.HP ---
History & Physical H&P Chief Complaint pressure/ concern for contractions Date Seen: Nov 10, 2017 Travel History International Travel<30 Days: No Contact w/Intl Traveler<30Days: No Known Affected Area: No History of Present Illness HPI Ms. Burgos is a 27 yo G1 at 39 weeks (CARLINE 11/17/2017 via 1st trimester US and LMP ) who presents for evaluation for contractions. Patient has had intermittent abdominal pain since ~320pm 1218; patient initially thought these symptoms were Trenary Cabrera contractions but they became more regular in interval and began occurring q5 min for hours, so patient sought evaluation for potential labor. Patient also reports "pressure" in groin area. Patient has not had any vaginal bleeding or discharge concerning for ROM. Patient has had normal movement. No headache or visual changes. Shortness of breath for ~1 week; patient attributes this to and is not concerned. No dysuria. No chest pain. Per review of history: patient GBS+. Elevated 1 hr GTT; 3 hr testing not performed. 1st trimester US with increased nuchal translucency; patient seen by MFM. Patient with 2 vessel cord; normal echocardiography. Cell free DNA normal. Patient has been having weekly BPP's which have been reassuring. Proteinuria during last visit to clinic visit; CMP and protein/Cr ratio ordered but not obtained. Weeks Gestation: 39 Para: 0 : 1 History (Limited) History Past Medical History Narrative Medical Elevated 1 hr GTT Obesity Anxiety/depression; no medications tobacco abuse Obstetric History Obstetric History G1 Past Surgical History Surgical History: No Previous Surgery Family History Narrative Family History Mother: asthma, gestation DM Maternal GP: DM2 Father: healthy Social History Narrative Social History Smoke 1 ppd x 5 years, currently down to 1 cigarette/day No alcohol or illicit drug use. Alcohol Use: No Tobacco Use: Yes Substance Abuse: No Allergies-Medications Allergies-Medications (Allergen,Severity, Reaction): Coded Allergies: amoxicillin (Verified Allergy, Severe, Hives, 11/10/17) penicillin G (Verified Allergy, Mild, Hives, 11/10/17) Uncoded Allergies: CANTELOPE MELON (Allergy, Mild, Hives, 07/26/11) HONEYDEW (Allergy, Mild, Hives, 07/26/11) Home Meds Active Scripts Glucocom Test Strips (Glucocom Test Strips) 1 Brooke Brooke, EA .ROUTE DIRECTED for Blood Sugar Management, #1 Check blood glucose four times/day. One fasting, and 2 hours post meal after each meal. Prov:Courtney Infante MD, R3 10/26/17 Parenteral Therapy Supplies (Sharpsafety Sharps Contai) 1 Mis Mis, EA .ROUTE DIRECTED, #1 0 Refills Prov:Courtney Infante MD, R3 09/29/17 Lancets (Lancets) 1 Mis Mis, EA .ROUTE DIRECTED for Blood Sugar Management, # 1 0 Refills Prov:Courtney Infante MD, R3 09/29/17 Blood Glucose Monitoring W/Device (Glucocom Blood Glucose Mo W/Device) 1 Kit Kit , KIT .ROUTE DIRECTED for Blood Sugar Management, #1 Prov:Courtney Infante MD, R3 09/29/17 Vit W/ Ferrous Fumara (Pnv Plus Multivi 27-1 mg) 1 Tab Tab, 1 TAB PO DAILY, #90 TAB 3 Refills Prov:Courtnye Infante MD, R3 06/23/17 ROS Review of Systems General / Constitutional: No: Fever, Chills Eyes: No: Blurred Vision, Visual changes HENT: No: Headaches, Lightheadedness Cardiovascular: No: Chest Pain or Discomfort, Palpitations Respiratory: No: Cough, Short of Breath Gastrointestinal: Abdominal Pain (contractions), No: Nausea, Vomiting Genitourinary: No: Urgency, Dysuria Physical Exam Physical Exam Initial BP 154/92 Narrative General: No acute distress Skin: No visible rashes Respiratory: Normal rate; CTAB CV: Normal rate and rhythm; normal peripheral perfusion GI: normal bowel sounds Ext: No LE edema or calf pain Abdomen: Gravid; no pain to palpation EXTREMITIES: No cyanosis or edema. NEUROLOGICAL: Awake and alert. Motor and sensory function grossly within normal limits. GENITOURINARY: External Genitalia: intact and normal in appearance Cervix: Dilatation:2cm Effacement: 90% Station: -1 Presentation: V Membranes: Intact Uterine Contractions: Irritability FHT's: Category: 1 Baseline: 120 Reactive: Y Variability: Mod Decels: None Data Data Data Vital Signs Reviewed: Yes Orders Orders Vital Signs (Adult) .ON ADMISSION (11/10/17 00:55) ^ Labor Status (11/10/17 00:55) Urinalysis - C+S If Indicated (11/10/17 00:55) ^ Non Stress Test (11/10/17 00:55) ^ Hydration (11/10/17 00:55) Cbc No Diff, Includes Plts (11/10/17 00:55) Comprehensive Metabolic Panel (11/10/17 00:55) Sodium Chlor 0.9% 1000 Ml Inj (Ns 1000 M (11/10/17 00:55) Protein Creat Ratio, Random Ur (11/10/17 00:55) Group B Strep: Positive MDM MDM Medical Record Reviewed: Yes Narrative Course / MDM 27 yo G1 at 39 weeks (CARLINE 11/17/2017 via 1st trimester US and LMP) who presents for evaluation for contractions: 1) IUP -Cat 1 rhythm -Normal FM -GBS+ 2) Complaint of contractions Impression: Uterine irritability on EFM/CTG. Cervix 2/90/-1 (Jauregui 7-8) -Continue EFM/CTG -Will encourage oral hydration -Will start LR for IV fluid hydration 3) Gestational HTN Impression: Patient normotensive at prior visits. SBP in 150's at OB ED ; dipstick UA with trace protein -Will monitor BP q15 min -Will evaluate for signs of preeclampsia -Will check CBC, CMP -Will check UA for proteinuria, microalbumin/Cr -Continue EFM/CTG 4) Maternal risk factors during Impression: elevated 1 hr GTT, maternal obesity but no diagnosis of GDM. US findings of 2 vessel cord, initial nuchal translucency but normal echo and cell free DNA. Receiving weekly testing -Will obtain US if concerned for status Plan Interval: Patient evaluated in OB ED > 1 hr: BP trended q15min- 155/96 -> 167/84 -> 165/77 -> 143/68 -> 146/65 EFM- continuous Cat 1 rhythm uterine irritability Labs: UA w/o proteinuria or glucosuria Protein/Cr ratio 0.23 CMP- AST, ALT wnl, Cr 0.52. Glucose 113 CBC- normal PLT count Updated Assessment/Plan: 27 yo G1 at 39 weeks GA with gestational HTN -Will admit for labor as GHTN with GA >37 weeks -Favorable cervix (Jauregui 7-8); will induce labor with Pitocin -Will continue to monitor VS, EFM -Will start Vancomycin for GBS+ (PCN allergy; no susceptibility testing performed on NAAT sample) -Will obtain routine admission labs -Dr. Infante notified Discussed with Luis Mccabe MD, R3 Nov 10, 2017 02:44
[2017-11-10] MEDS ORDERED: fentaNYL 2MCG-BUPIV 0.125% INJ 100 ML ONE ×2 (05:42→13:33)
[2017-11-10] MEDS ORDERED: ePHEDrine/NS 25 MG/5 ML SYRINGE ONE (05:42)
[2017-11-10] MEDS ORDERED: NO SYSTEM NARCOTICS PRN (06:00)
[2017-11-10] MEDS ORDERED: DO NOT ADMINISTER ANTICOAGULANTS PRN (06:00)
[2017-11-10] MEDS ORDERED: fentaNYL 2MCG-BUPIV 0.125% 100 ML EPIDURAL SCH (06:00)
--- NOTE | 2017-11-10 06:05 | PD.LABORPN ---
Subjective Subjective Patient is breathing through contractions, requesting an epidural. Objective Vital Signs Vital Signs Date Time Temp Pulse Resp B/P (MAP) Pulse Ox O2 Delivery O2 Flow Rate FiO2 11/10/17 05:33 66 157/83 (107) 11/10/17 05:01 65 154/77 (102) 11/10/17 04:33 71 154/71 (98) 11/10/17 04:11 62 151/78 (102) 11/10/17 04:09 63 11/10/17 04:08 98.7 11/10/17 04:01 68 18 11/10/17 03:56 69 147/88 (107) 11/10/17 03:01 77 152/85 (107) 11/10/17 02:31 67 146/84 (104) 11/10/17 02:29 63 150/78 (102) 11/10/17 02:24 68 11/10/17 01:46 67 140/75 (96) 11/10/17 01:31 80 146/75 (98) 11/10/17 01:16 75 143/68 (93) 11/10/17 01:01 78 165/77 (106) 11/10/17 00:46 77 167/84 (111) 11/10/17 00:40 82 155/96 (115) Objective Pelvic Exam: Cervix: posterior Dilatation: 3-4 Effacement: 90 Station: -1 Presentation: vertex Membranes: intact Uterine Contractions: q2-3min FHT's: Category: I Baseline: 135 Reactive: + Variability: moderate Decels: none Weeks Gestation: 39 Assessment/Plan Problem List: (1) 39 weeks gestation of ICD Codes: Z3A.39 - 39 weeks gestation of Status: Acute (2) PIH ( induced hypertension) ICD Codes: O13.9 - Gestational [-induced] hypertension without significant proteinuria, unspecified trimester Qualifiers: Qualified Codes: O13.3 - Gestational [-induced] hypertension without significant proteinuria, third trimester Assessment and Plan 27 yo at 39 weeks gestation. 1. IUP- Category I tracing, reassuring. 2. PIH- BP ranging 140-150's/70-80's, not previously elevated in . CMP , CBC wnl. Protein/creat ratio elevated at 0.23, UA shows trace protein. Labs reassuring. - IOL with Pitocin, cervical change noted. 3. GBS positive, penicillin allergic- ppx with vancomycin 4. Gestational Diabetes- elevated 1 hr GTT (never obtained 3hr GTT). Diet controlled. Will monitor bedside glucose. 5. Maternal obesity dw Dr. Joselyn Infante,Courtney Conway MD, R3 Nov 10, 2017 06:05
--- NOTE | 2017-11-10 11:19 | HHI.PR ---
Subjective Remarks On assuming care for the patient I evaluated her heart rate tracing which was reassuring and when spoke with the patient. She has progressed from 3 cm dilated to 6-7 cm dilated. We discussed the goal of a vaginal delivery as well as the risks of vaginal delivery including but not limited shoulder dystocia and permanent irreversible neurological injury. We also discussed the risks and indications of delivery and discussed that our goal is a vaginal delivery if safely possible. We discussed the risks of including but not limited to pain, infection, bleeding, injury to other organs like the bladder, bowels, nerves, vessels or baby, Need for hysterectomy, blood transfusion, repeat operation, wound infection or breakdown, and other possible complications. She is aware goals safe vaginal delivery but is in agreement with a if indicated. All the patient's questions were answered. We' ll monitor closely. Objective Vital Signs Date Time Temp Pulse Resp B/P (MAP) Pulse Ox O2 Delivery O2 Flow Rate FiO2 11/10/17 11:01 87 130/76 (94) 11/10/17 11:00 98.2 11/10/17 10:31 99 137/74 (95) 11/10/17 10:01 96 158/123 (135) 11/10/17 09:31 80 138/84 (102) 11/10/17 09:01 91 131/81 (98) 11/10/17 08:31 89 119/74 (89) 11/10/17 08:01 82 112/74 (87) 11/10/17 07:31 91 122/67 (85) 11/10/17 07:15 98.6 18 11/10/17 07:01 75 126/66 (86) 11/10/17 06:31 76 124/60 (81) 11/10/17 06:28 84 113/68 (83) 11/10/17 06:25 86 11/10/17 06:25 85 127/69 (88) 11/10/17 06:22 78 130/59 (82) 11/10/17 06:20 84 11/10/17 06:19 84 128/77 (94) 11/10/17 06:16 87 123/61 (81) 11/10/17 06:15 88 11/10/17 06:13 90 126/71 (89) 11/10/17 06:10 81 11/10/17 06:10 85 125/69 (87) 11/10/17 06:07 89 125/72 (89) 11/10/17 06:05 74 11/10/17 06:04 74 130/85 (100) 11/10/17 06:01 82 152/88 (109) 11/10/17 06:00 86 11/10/17 05:55 89 11/10/17 05:33 66 157/83 (107) 11/10/17 05:01 65 154/77 (102) 11/10/17 04:33 71 154/71 (98) 11/10/17 04:11 62 151/78 (102) 11/10/17 04:09 63 11/10/17 04:08 98.7 11/10/17 04:01 68 18 11/10/17 03:56 69 147/88 (107) 11/10/17 03:01 77 152/85 (107) 11/10/17 02:31 67 146/84 (104) 11/10/17 02:29 63 150/78 (102) 11/10/17 02:24 68 11/10/17 01:46 67 140/75 (96) 11/10/17 01:31 80 146/75 (98) 11/10/17 01:16 75 143/68 (93) 11/10/17 01:01 78 165/77 (106) 11/10/17 00:46 77 167/84 (111) 11/10/17 00:40 82 155/96 (115) Result Diagram: 11/10/17 0053 11/10/17 0053 Angela Paul MD Nov 10, 2017 11:19
--- NOTE | 2017-11-10 12:00 | PD.LABORPN ---
Subjective Subjective Patient is feeling more pressure but otherwise resting comfortably. Objective Vital Signs Vital Signs Date Time Temp Pulse Resp B/P (MAP) Pulse Ox O2 Delivery O2 Flow Rate FiO2 11/10/17 11:31 118 137/106 (116) 11/10/17 11:01 87 130/76 (94) 11/10/17 11:00 98.2 11/10/17 10:31 99 137/74 (95) 11/10/17 10:01 96 158/123 (135) 11/10/17 09:31 80 138/84 (102) 11/10/17 09:01 91 131/81 (98) 11/10/17 08:31 89 119/74 (89) 11/10/17 08:01 82 112/74 (87) 11/10/17 07:31 91 122/67 (85) 11/10/17 07:15 98.6 18 11/10/17 07:01 75 126/66 (86) 11/10/17 06:31 76 124/60 (81) 11/10/17 06:28 84 113/68 (83) 11/10/17 06:25 86 11/10/17 06:25 85 127/69 (88) 11/10/17 06:22 78 130/59 (82) 11/10/17 06:20 84 11/10/17 06:19 84 128/77 (94) 11/10/17 06:16 87 123/61 (81) 11/10/17 06:15 88 11/10/17 06:13 90 126/71 (89) 11/10/17 06:10 81 11/10/17 06:10 85 125/69 (87) 11/10/17 06:07 89 125/72 (89) 11/10/17 06:05 74 11/10/17 06:04 74 130/85 (100) 11/10/17 06:01 82 152/88 (109) 11/10/17 06:00 86 11/10/17 05:55 89 11/10/17 05:33 66 157/83 (107) 11/10/17 05:01 65 154/77 (102) 11/10/17 04:33 71 154/71 (98) 11/10/17 04:11 62 151/78 (102) 11/10/17 04:09 63 11/10/17 04:08 98.7 11/10/17 04:01 68 18 11/10/17 03:56 69 147/88 (107) Objective Pelvic Exam: Cervix: midposition Dilatation: 8 Effacement: 100 Station: -1 Presentation: vertex Membranes: AROM, mec stained Uterine Contractions: q2-3min FHT's: Category: I Baseline: 145 Reactive: + Variability: moderate Decels: none Weeks Gestation: 39 Medical induction of labor?: Yes Medical induction start date: Nov 10, 2017 Medical induction start time: 02:00 Artificial rupture of membrane: Yes Artificial ROM date: Nov 10, 2017 Artifical ROM time: 11:56 Assessment/Plan Problem List: (1) 39 weeks gestation of ICD Codes: Z3A.39 - 39 weeks gestation of Status: Acute (2) PIH ( induced hypertension) ICD Codes: O13.9 - Gestational [-induced] hypertension without significant proteinuria, unspecified trimester Qualifiers: Qualified Codes: O13.3 - Gestational [-induced] hypertension without significant proteinuria, third trimester Assessment and Plan 27 yo at 39 weeks gestation. 1. IUP- Category I tracing, reassuring. Difficult to trace at times due to maternal body habitus. 2. PIH- BP ranging 140-150's/70-80's on admission, now stable wnl s/p epidural. CMP, CBC wnl. Protein/creat ratio elevated at 0.23, UA shows trace protein. Labs reassuring. - IOL with Pitocin and AROM cervical change noted. 3. GBS positive, penicillin allergic- ppx with vancomycin 4. Gestational Diabetes- elevated 1 hr GTT (never obtained 3hr GTT). Diet controlled. Will monitor bedside glucose. 5. Maternal obesity. 6. Epidural. 7. Anticipate vaginal delivery. dw Courtney Ortiz MD, R3 Nov 10, 2017 12:00
--- NOTE | 2017-11-10 13:14 | PD.LABORPN ---
Subjective Subjective Patient is starting to feel more pressure and the urge to push. Objective Vital Signs Vital Signs Date Time Temp Pulse Resp B/P (MAP) Pulse Ox O2 Delivery O2 Flow Rate FiO2 11/10/17 13:02 109 135/88 (104) 11/10/17 12:31 98 148/93 (111) 11/10/17 12:01 103 128/77 (94) 11/10/17 11:31 118 137/106 (116) 11/10/17 11:15 19 11/10/17 11:01 87 130/76 (94) 11/10/17 11:00 98.2 11/10/17 10:31 99 137/74 (95) 11/10/17 10:01 96 158/123 (135) 11/10/17 09:31 80 138/84 (102) 11/10/17 09:01 91 131/81 (98) 11/10/17 08:31 89 119/74 (89) 11/10/17 08:01 82 112/74 (87) 11/10/17 07:31 91 122/67 (85) 11/10/17 07:15 98.6 18 11/10/17 07:01 75 126/66 (86) 11/10/17 06:31 76 124/60 (81) 11/10/17 06:28 84 113/68 (83) 11/10/17 06:25 86 11/10/17 06:25 85 127/69 (88) 11/10/17 06:22 78 130/59 (82) 11/10/17 06:20 84 11/10/17 06:19 84 128/77 (94) 11/10/17 06:16 87 123/61 (81) 11/10/17 06:15 88 11/10/17 06:13 90 126/71 (89) 11/10/17 06:10 81 11/10/17 06:10 85 125/69 (87) 11/10/17 06:07 89 125/72 (89) 11/10/17 06:05 74 11/10/17 06:04 74 130/85 (100) 11/10/17 06:01 82 152/88 (109) 11/10/17 06:00 86 11/10/17 05:55 89 12/19/17 05:33 66 157/83 (107) Objective Pelvic Exam: Cervix: midposition Dilatation: 9-10 Effacement: 100 Station: -1 Presentation: vertex Membranes: AROM, mec Uterine Contractions: q2-3min FHT's: Category: I Baseline: 130 Reactive: + Variability: moderate Decels: none Weeks Gestation: 39 Medical induction of labor?: Yes Medical induction start date: Nov 10, 2017 Medical induction start time: 02:00 Artificial rupture of membrane: Yes Artificial ROM date: Nov 10, 2017 Artifical ROM time: 11:56 Assessment/Plan Problem List: (1) 39 weeks gestation of ICD Codes: Z3A.39 - 39 weeks gestation of Status: Acute (2) PIH ( induced hypertension) ICD Codes: O13.9 - Gestational [-induced] hypertension without significant proteinuria, unspecified trimester Qualifiers: Qualified Codes: O13.3 - Gestational [-induced] hypertension without significant proteinuria, third trimester Assessment and Plan 27 yo at 39 weeks gestation. 1. IUP- Category I tracing, reassuring. Difficult to trace at times due to maternal body habitus, IUPC and FSE placed for monitoring. 2. PIH- BP ranging 140-150's/70-80's on admission, now stable wnl s/p epidural. CMP, CBC wnl. Protein/creat ratio elevated at 0.23, UA shows trace protein. Labs reassuring. - IOL with Pitocin and AROM cervical change noted. 3. GBS positive, penicillin allergic- ppx with vancomycin 4. Gestational Diabetes- elevated 1 hr GTT (never obtained 3hr GTT). Diet controlled. Bedside glucose stable, continue to monitor. 5. Maternal obesity. 6. Epidural. 7. Anticipate vaginal delivery. dw Courtney Ortiz MD, R3 Nov 10, 2017 13:14
--- NOTE | 2017-11-10 14:38 | HHI.PR ---
Subjective Remarks On assuming care for the patient I evaluated her heart rate tracing which was reassuring and when spoke with the patient. She has progressed from 3 cm dilated to 6-7 cm dilated. We discussed the goal of a vaginal delivery as well as the risks of vaginal delivery including but not limited shoulder dystocia and permanent irreversible neurological injury. We also discussed the risks and indications of delivery and discussed that our goal is a vaginal delivery if safely possible. We discussed the risks of including but not limited to pain, infection, bleeding, injury to other organs like the bladder, bowels, nerves, vessels or baby, Need for hysterectomy, blood transfusion, repeat operation, wound infection or breakdown, and other possible complications. She is aware goals safe vaginal delivery but is in agreement with a if indicated. All the patient's questions were answered. We' ll monitor closely. Objective Vital Signs Date Time Temp Pulse Resp B/P (MAP) Pulse Ox O2 Delivery O2 Flow Rate FiO2 11/10/17 13:31 112 147/93 (111) 11/10/17 13:02 109 135/88 (104) 11/10/17 12:31 98 148/93 (111) 11/10/17 12:01 103 128/77 (94) 11/10/17 11:31 118 137/106 (116) 11/10/17 11:15 19 11/10/17 11:01 87 130/76 (94) 11/10/17 11:00 98.2 11/10/17 10:31 99 137/74 (95) 11/10/17 10:01 96 158/123 (135) 11/10/17 09:31 80 138/84 (102) 11/10/17 09:01 91 131/81 (98) 11/10/17 08:31 89 119/74 (89) 11/10/17 08:01 82 112/74 (87) 11/10/17 07:31 91 122/67 (85) 11/10/17 07:15 98.6 18 11/10/17 07:01 75 126/66 (86) 11/10/17 06:31 76 124/60 (81) 11/10/17 06:28 84 113/68 (83) 11/10/17 06:25 86 11/10/17 06:25 85 127/69 (88) 11/10/17 06:22 78 130/59 (82) 11/10/17 06:20 84 11/10/17 06:19 84 128/77 (94) 11/10/17 06:16 87 123/61 (81) 11/10/17 06:15 88 11/10/17 06:13 90 126/71 (89) 11/10/17 06:10 81 11/10/17 06:10 85 125/69 (87) 11/10/17 06:07 89 125/72 (89) 11/10/17 06:05 74 11/10/17 06:04 74 130/85 (100) 11/10/17 06:01 82 152/88 (109) 11/10/17 06:00 86 11/10/17 05:55 89 11/10/17 05:33 66 157/83 (107) 11/10/17 05:01 65 154/77 (102) 11/10/17 04:33 71 154/71 (98) 11/10/17 04:11 62 151/78 (102) 11/10/17 04:09 63 11/10/17 04:08 98.7 11/10/17 04:01 68 18 11/10/17 03:56 69 147/88 (107) 11/10/17 03:01 77 152/85 (107) 11/10/17 02:31 67 146/84 (104) 11/10/17 02:29 63 150/78 (102) 11/10/17 02:24 68 11/10/17 01:46 67 140/75 (96) 11/10/17 01:31 80 146/75 (98) 11/10/17 01:16 75 143/68 (93) 11/10/17 01:01 78 165/77 (106) 11/10/17 00:46 77 167/84 (111) 11/10/17 00:40 82 155/96 (115) Result Diagram: 11/10/17 0053 11/10/17 0053 Angela Paul MD Nov 10, 2017 14:38
--- NOTE | 2017-11-10 14:46 | HHI.PR ---
Subjective Remarks Patient progressed to complete/complete/+1. She commenced spontaneous maternal expulsive efforts with subsequent atraumatic and spontaneous delivery of the head followed by spontaneous and atraumatic delivery of the anterior shoulder and remainder of the . The was placed on the maternal abdomen and was vigorous. A true knot was noted in the umbilical cord. The placenta was delivered spontaneously. Apgars Objective Vital Signs Date Time Temp Pulse Resp B/P (MAP) Pulse Ox O2 Delivery O2 Flow Rate FiO2 11/10/17 13:31 112 147/93 (111) 11/10/17 13:02 109 135/88 (104) 11/10/17 12:31 98 148/93 (111) 11/10/17 12:01 103 128/77 (94) 11/10/17 11:31 118 137/106 (116) 11/10/17 11:15 19 11/10/17 11:01 87 130/76 (94) 11/10/17 11:00 98.2 11/10/17 10:31 99 137/74 (95) 11/10/17 10:01 96 158/123 (135) 11/10/17 09:31 80 138/84 (102) 11/10/17 09:01 91 131/81 (98) 11/10/17 08:31 89 119/74 (89) 11/10/17 08:01 82 112/74 (87) 11/10/17 07:31 91 122/67 (85) 11/10/17 07:15 98.6 18 11/10/17 07:01 75 126/66 (86) 11/10/17 06:31 76 124/60 (81) 11/10/17 06:28 84 113/68 (83) 11/10/17 06:25 86 11/10/17 06:25 85 127/69 (88) 11/10/17 06:22 78 130/59 (82) 11/10/17 06:20 84 11/10/17 06:19 84 128/77 (94) 11/10/17 06:16 87 123/61 (81) 11/10/17 06:15 88 11/10/17 06:13 90 126/71 (89) 11/10/17 06:10 81 11/10/17 06:10 85 125/69 (87) 11/10/17 06:07 89 125/72 (89) 11/10/17 06:05 74 11/10/17 06:04 74 130/85 (100) 11/10/17 06:01 82 152/88 (109) 11/10/17 06:00 86 11/10/17 05:55 89 11/10/17 05:33 66 157/83 (107) 11/10/17 05:01 65 154/77 (102) 11/10/17 04:33 71 154/71 (98) 11/10/17 04:11 62 151/78 (102) 11/10/17 04:09 63 11/10/17 04:08 98.7 11/10/17 04:01 68 18 11/10/17 03:56 69 147/88 (107) 11/10/17 03:01 77 152/85 (107) 11/10/17 02:31 67 146/84 (104) 11/10/17 02:29 63 150/78 (102) 11/10/17 02:24 68 11/10/17 01:46 67 140/75 (96) 11/10/17 01:31 80 146/75 (98) 11/10/17 01:16 75 143/68 (93) 11/10/17 01:01 78 165/77 (106) 11/10/17 00:46 77 167/84 (111) 11/10/17 00:40 82 155/96 (115) Result Diagram: 11/10/17 0053 11/10/17 0053 Angela Paul MD Nov 10, 2017 14:46
--- NOTE | 2017-11-10 15:08 | PD.OB.DELI ---
Weeks gestation: 39 Medical induction of labor?: Yes Medical induction start date: Nov 10, 2017 Medical induction start time: 02:00 Artificial rupture of membrane: Yes Artificial ROM date: Nov 10, 2017 Artifical ROM time: 11:56 Anesthesia: Epidural, Lidocaine local to perineum (for repair) Episiotomy: None Vaginal Delivery: Normal Presentation: Occiput anterior Nuchal Cord: x1 Delayed cord clamping (45 sec): Yes Infant: Male Delivery date: Nov 10, 2017 Delivery time: 14:24 One Minute : 8 Five Minute : 9 Weight: 3540g Placenta: Spontaneous delivery, Intact, Other (2 vessel cord, true knot) Laceration: 1 deg (labial laceration bilaterally) Repair: Chromic running (3-0 chromic) Estimated blood loss: 250cc Additional Information Baby Gregorio. Supervised by Courtney Ortiz MD, R3 Nov 10, 2017 15:08
[2017-11-10] MEDS ORDERED: SODIUM CHLORIDE 0.9% FLUSH 10 ML FLUSH IV FLUSH PRN (15:15)
[2017-11-10] MEDS ORDERED: ONDANSETRON ODT 4 MG TAB PO PRN (15:15)
[2017-11-10] MEDS ORDERED: WITCH HAZEL 50%/GLYCERIN 12.5% 40 PAD JAR TOPICAL PRN (15:15)
[2017-11-10] MEDS ORDERED: DOCUSATE SODIUM 50 MG/SENNA 8.6 MG TAB PO PRN (15:15)
[2017-11-10] MEDS ORDERED: oxyCODONE/ACETAMINOPHEN 5 MG/325 MG TAB PO PRN ×2 (15:15)
[2017-11-10] MEDS ORDERED: ZOLPIDEM TARTRATE 5 MG TAB PO PRN (15:15)
[2017-11-10] MEDS ORDERED: BENZOCAINE 20% TOPICAL SPRAY 60 ML CAN TOPICAL PRN (15:15)
[2017-11-10] MEDS ORDERED: ALUMINUM/MAGNESIUM/SIMETH 30 ML CUP PO PRN (15:15)
[2017-11-10] MEDS ORDERED: ePHEDrine/NS 25 MG/5 ML SYRINGE IV PUSH PRN (16:00)
[2017-11-10] MEDS ORDERED: MEASLES, MUMPS, RUBELLA VACCINE 0.5 ML VIAL SQ ONE (16:00)
[2017-11-10] MEDS ORDERED: DIPHTH/TETANUS/ACEL PERTUSSIS (BOOSTER) 0.5 ML VIAL/PFS IM ONE (16:00)
[2017-11-10] MEDS ORDERED: SODIUM CHLORIDE 0.9% FLUSH 10 ML FLUSH IV FLUSH SCH (21:00)
[2017-11-11] VITALS: BP 153/87; PULSE 106; RESP 20; TEMP 98.7; O2SAT 97
--- NOTE | 2017-11-11 07:01 | HHI.OB ---
Subjective Remarks PPD day # 1. No acute issues overnight, vitals are stable, patient remains afebrile. Blood pressure is mildly elevated in the 150's/80. Incision not draining. Decreasing lochia and pain. Patient is ambulating without difficulty and voiding independently. She is feeding the baby via breast and formula. She denies any nausea or vomiting and has a good appetite. Positive flatus/ bowel movement. She denies any calf pain, chest pain, or shortness of breath. She is bonding well with . Objective Vitals/I&O Vital Signs Date Time Temp Pulse Resp B/P (MAP) Pulse Ox O2 Delivery O2 Flow Rate FiO2 11/11/17 00:00 98.7 106 20 153/87 (109) 97 11/10/17 20:00 153/85 (107) 11/10/17 20:00 98.6 96 20 99 11/10/17 18:30 82 149/76 (100) 11/10/17 16:53 98.5 100 20 151/90 (110) 98 11/10/17 15:46 90 153/80 (104) 11/10/17 15:31 107 154/123 (133) 11/10/17 15:16 102 161/79 (106) 11/10/17 15:13 19 11/10/17 15:01 108 138/100 (113) 11/10/17 14:54 98.9 11/10/17 14:46 110 143/82 (102) 11/10/17 14:43 109 151/95 (113) 11/10/17 14:31 124 143/61 (88) 11/10/17 14:01 88 160/85 (110) 11/10/17 13:31 112 147/93 (111) 11/10/17 13:02 109 135/88 (104) 11/10/17 12:31 98 148/93 (111) 11/10/17 12:01 103 128/77 (94) 11/10/17 11:31 118 137/106 (116) 11/10/17 11:15 19 11/10/17 11:01 87 130/76 (94) 11/10/17 11:00 98.2 11/10/17 10:31 99 137/74 (95) 11/10/17 10:01 96 158/123 (135) 11/10/17 09:31 80 138/84 (102) 11/10/17 09:01 91 131/81 (98) 11/10/17 08:31 89 119/74 (89) 11/10/17 08:01 82 112/74 (87) 11/10/17 07:31 91 122/67 (85) 11/10/17 07:15 98.6 18 11/10/17 07:01 75 126/66 (86) Objective Remarks GENERAL: Well-nourished, well-developed patient. CARDIOVASCULAR: Regular rate and rhythm without murmurs, gallops, or rubs. RESPIRATORY: Breath sounds equal bilaterally. No accessory muscle use. ABDOMEN/GI: Abdomen soft, non-tender. Fundus: Firm, non-tender at umbilicus. GENITOURINARY: Light to moderate bleeding. EXTREMITIES: No cyanosis or edema, non-tender, without signs of DVT. Medications and IVs Current Medications Medications (Trade) Dose Ordered Sig/Mark Route Start Time Stop Time Status Last Admin (Xylocaine 1% Inj (50 ml)) 0.1 ml UNSCH X1 PRN I-DERMAL 11/10/17 02:00 11/13/17 01:59 (Bicitra Liq) 30 ml MOTOR TUNE UP SPECIALIST PO 11/10/17 02:00 11/14/17 01:59 (Xylocaine 1% Inj (50 ml)) 10 ml UNSCH X1 PRN INFIL 11/10/17 02:00 11/12/17 01:59 (NS Flush) 2 ml BID IV FLUSH 11/10/17 21:00 (NS Flush) 2 ml UNSCH PRN IV FLUSH 11/10/17 15:15 (Tylenol) 650 mg Q4H PRN PO 11/10/17 15:15 (Motrin) 800 mg Q8H PRN PO 11/10/17 15:15 (Percocet 5-325 Mg) 1 tab Q4H PRN PO 11/10/17 15:15 (Percocet 5-325 Mg) 2 tab Q4H PRN PO 11/10/17 15:15 (Americaine 20% Top Spr) 1 spray Q4H PRN TOPICAL 11/10/17 15:15 (Tucks Pads) 1 applic QID PRN TOPICAL 12/19/17 15:15 (Lauren-Colace) 2 tab Q12H PRN PO 11/10/17 15:15 (Ambien) 5 mg HS PRN PO 11/10/17 15:15 (Mag-Al Plus Susp Liq) 15 ml Q8H PRN PO 11/10/17 15:15 (Zofran Odt) 4 mg Q6H PRN PO 11/10/17 15:15 Fentanyl/ Bupivacaine HCl 100 ml @ 0 mls/hr TITRATE EPIDURAL 11/10/17 06:00 (ePHEDrine/NS 25 MG/5 ML SYR) 10 mg UNSCH PRN IV PUSH 11/10/17 16:00 11/11/17 15:59 Assessment/Plan Problem List: (1) 39 weeks gestation of ICD Codes: Z3A.39 - 39 weeks gestation of Status: Acute (2) PIH ( induced hypertension) ICD Codes: O13.9 - Gestational [-induced] hypertension without significant proteinuria, unspecified trimester Qualifiers: Qualified Codes: O13.3 - Gestational [-induced] hypertension without significant proteinuria, third trimester Assessment and Plan 27 y/o female who is PPD # 1 s/p . -Continue routine care. -Percocet and Motrin PRN pain. -Encouraged OOB. Advised pelvic rest for 6 wks. -Re: ctrl, she would like OCP. - Case management consult to assist with social situation. - Anticipate discharge home tomorrow. Courtney Storey MD, R3 Nov 11, 2017 07:01
[2017-11-11] MEDS: ACETAMINOPHEN 325 MG TAB PO PRN ×4 (07:49→21:02)
[2017-11-11] MEDS: IBUPROFEN 800 MG TAB PO PRN ×2 (07:49→16:43)
[2017-11-11 08:00] VITALS: BP 134/80; PULSE 87; RESP 22; TEMP 98.7
[2017-11-11 10:34] VITALS: BP 135/77
[2017-11-11 15:00] VITALS: BP 152/88; PULSE 96; RESP 20; TEMP 98.4
[2017-11-11 20:45] VITALS: BP 140/77; PULSE 80; RESP 18; TEMP 98.8
[2017-11-12 02:30] VITALS: BP 139/82; PULSE 96; RESP 18; TEMP 97.7
--- NOTE | 2017-11-12 06:55 | HHI.OB ---
Subjective Remarks PPD day # 2. No acute issues overnight, vitals are stable, patient remains afebrile. Blood pressure is mildly elevated in the 130's-150's/70-80's. Decreasing lochia and pain. Patient is ambulating without difficulty and voiding independently. She is feeding the baby via breast and formula. She denies any nausea or vomiting and has a good appetite. Positive flatus/bowel movement. She denies any calf pain, chest pain, or shortness of breath. She is bonding well with . Objective Vitals/I&O Vital Signs Date Time Temp Pulse Resp B/P (MAP) Pulse Ox O2 Delivery O2 Flow Rate FiO2 11/12/17 02:30 97.7 96 18 11/12/17 02:30 139/82 (101) 11/11/17 20:45 98.8 80 18 140/77 (98) 11/11/17 15:00 98.4 96 20 152/88 (109) 11/11/17 10:34 135/77 (96) 11/11/17 08:00 98.7 87 22 134/80 (98) Objective Remarks GENERAL: Well-nourished, well-developed patient. CARDIOVASCULAR: Regular rate and rhythm without murmurs, gallops, or rubs. RESPIRATORY: Breath sounds equal bilaterally. No accessory muscle use. ABDOMEN/GI: Abdomen soft, non-tender. Fundus: Firm, non-tender at umbilicus. GENITOURINARY: Light to moderate bleeding. EXTREMITIES: No cyanosis or edema, non-tender, without signs of DVT. Medications and IVs Current Medications Medications (Trade) Dose Ordered Sig/Mark Route Start Time Stop Time Status Last Admin (Xylocaine 1% Inj (50 ml)) 0.1 ml UNSCH X1 PRN I-DERMAL 11/10/17 02:00 11/13/17 01:59 (Bicitra Liq) 30 ml BUSINESS LEADER PO 11/10/17 02:00 11/14/17 01:59 (NS Flush) 2 ml BID IV FLUSH 11/10/17 21:00 (NS Flush) 2 ml UNSCH PRN IV FLUSH 11/10/17 15:15 (Tylenol) 650 mg Q4H PRN PO 11/10/17 15:15 11/11/17 21:02 (Motrin) 800 mg Q8H PRN PO 11/10/17 15:15 11/11/17 16:43 (Percocet 5-325 Mg) 1 tab Q4H PRN PO 11/10/17 15:15 (Percocet 5-325 Mg) 2 tab Q4H PRN PO 11/10/17 15:15 (Americaine 20% Top Spr) 1 spray Q4H PRN TOPICAL 11/10/17 15:15 (Tucks Pads) 1 applic QID PRN TOPICAL 11/10/17 15:15 (Lauren-Colace) 2 tab Q12H PRN PO 11/10/17 15:15 11/11/17 07:49 (Ambien) 5 mg HS PRN PO 11/10/17 15:15 (Mag-Al Plus Susp Liq) 15 ml Q8H PRN PO 11/10/17 15:15 (Zofran Odt) 4 mg Q6H PRN PO 11/10/17 15:15 Fentanyl/ Bupivacaine HCl 100 ml @ 0 mls/hr TITRATE EPIDURAL 11/10/17 06:00 Assessment/Plan Problem List: (1) 39 weeks gestation of ICD Codes: Z3A.39 - 39 weeks gestation of Status: Acute (2) PIH ( induced hypertension) ICD Codes: O13.9 - Gestational [-induced] hypertension without significant proteinuria, unspecified trimester Qualifiers: Qualified Codes: O13.3 - Gestational [-induced] hypertension without significant proteinuria, third trimester Assessment and Plan 27 y/o female who is PPD # 2 s/p . -Continue routine care. - PIH- BP's elevated with anxiety, otherwise stable. Will continue to monitor and treat if indicated. -Percocet and Motrin PRN pain. -Encouraged OOB. Advised pelvic rest for 6 wks. Follow-up in 1 week given history of anxiety and BP elevation. -Re: ctrl, she would like OCP. - Anticipate discharge home today. Courtney Terrell MD, R3 Nov 12, 2017 06:55
[2017-11-12] MEDS ORDERED: IBUP1TAB7 PO (07:02)
[2017-11-12] MEDS ORDERED: PERI PO (07:02)
--- NOTE | 2017-11-12 07:03 | HHI.DCPOC ---
Discharge Care Plan Diagnosis: (1) 39 weeks gestation of (2) PIH ( induced hypertension) (3) (spontaneous vaginal delivery) Report Symptoms to Your Doctor -Temperature above 100.5 degrees -Redness, of incision or excessive or foul smelling drainage -Unusual pain or calf pain -Increased vaginal bleeding -Painful or difficulty urinating -Feelings of extreme sadness or anxiety after 2 weeks Goals to Promote Your Health * To prevent worsening of your condition and complications * To maintain your health at the optimal level Directions to Meet Your Goals Take your medications as prescribed Follow your dietary instruction Follow activity as directed Ensure plenty of rest for recovery Drink fluids for hydration Keep your appointments as scheduled Take your immunizations and boosters as scheduled If your symptoms worsen call your PCP, if no PCP go to Urgent Care Center or Emergency Room Smoking is Dangerous to Your Health. Avoid second hand smoke Call the 24-hour crisis hotline for domestic abuse at Courtney Infante MD, R3 Nov 12, 2017 07:03
[2017-11-12 08:40] VITALS: BP 147/85; PULSE 87; RESP 20; TEMP 98.3
[2017-11-12] MEDS: ACETAMINOPHEN 325 MG TAB PO PRN (14:29)
[2017-11-12] MEDS: IBUPROFEN 800 MG TAB PO PRN (14:29)
== END 2017-11-12 17:15 | disposition home or self-care (01) | DRG 775 ==
LOC: HOBED 11-10 → H2EB 11-10 02:02 → H1EA 11-10 16:10
PROVIDERS: ADMIT Obstetrics & Gynecology; ATTEND Obstetrics & Gynecology
PROC: 10E0XZZ Delivery of Products of Conception, External Approach (ICD-10-PCS; principal; 2017-11-10)
PROC: 10907ZC Drainage of Amniotic Fluid, Therapeutic from Products of Conception, Via Natural or Artificial Opening (ICD-10-PCS; 2017-11-10)
PROC: 0HQ9XZZ Repair Perineum Skin, External Approach (ICD-10-PCS; 2017-11-10)
DX: O13.4 Gestational [pregnancy-induced] hypertension without significant proteinuria, complicating childbirth (principal); Z68.43 Body mass index [BMI] 50.0-59.9, adult; O99.344 Other mental disorders complicating childbirth; O24.429 Gestational diabetes mellitus in childbirth, unspecified control; E66.9 Obesity, unspecified; F32.9 Major depressive disorder, single episode, unspecified; O99.214 Obesity complicating childbirth; O70.0 First degree perineal laceration during delivery; O69.2XX0 Labor and delivery complicated by other cord entanglement, with compression, not applicable or unspecified; O99.824 Streptococcus B carrier state complicating childbirth; Z37.0 Single live birth; Z3A.39 39 weeks gestation of pregnancy; O99.334 Smoking (tobacco) complicating childbirth; F41.9 Anxiety disorder, unspecified; F17.210 Nicotine dependence, cigarettes, uncomplicated; Z88.1 Allergy status to other antibiotic agents; Z88.0 Allergy status to penicillin
CPT/HCPCS: 59025; 80053; 80307; 81001; 82570; 82948; 84156; 85027; 86900; 86901; 96360; J2590; J3010; J3370; J7120

== ENCOUNTER 2017-11-13 19:05 | Observation (INO) | payer MEDICAID ==
[~2017-11-13] VITALS: Ht 160 cm; Wt 130.5 kg
[~2017-11-13 19:05] MED LIST changes: +IBUP1TAB7 PO; +PERI PO
[2017-11-13 19:09] VITALS: BP 152/93; PULSE 87; RESP 18; TEMP 97.8; O2SAT 100
--- NOTE | 2017-11-13 19:46 | PD ---
HPI Chief Complaint: Hypertension Time Seen by Provider: 19:38 Travel History International Travel<30 days: No Contact w/Intl Traveler<30days: No Traveled to known affect area: No History of Present Illness HPI 27-year-old female presents to the emergency department by private transportation for noting swelling of her feet and elevated blood pressure. Patient states she is 2 days . Patient was delivered vaginally at 39 weeks and was noted to be monitored for -induced hypertension at time of delivery. Patient had been noted to have mild proteinuria and had had trending of blood pressures at time of delivery of 155/90 667/84- and then time of delivery 146/65. Patient was kept in the hospital until last evening at 5 PM when she was discharged to home. Patient was encouraged to monitor her blood pressure at home and to notify her managing physician should she have any swelling of the lower extremities. Patient states she's continued to have swelling of the feet and lower legs. Patient states at home she did check her blood pressure and it was 170/110. Patient denies headache, visual disturbance , nausea, vomiting, chest pain, shortness of breath, or abdominal pain. Patient has occasionally experienced some dizziness. Patient has not been on any antihypertensive medications during her or . PFSH Past Medical History Narrative Medical Anxiety depression obesity ab0 tobacco use nursing notes reviewed Blood Disorders: No Anxiety: Yes Depression: Yes Patient Takes Glucophage: No Diminished Hearing: No Hypertension: Yes Immunizations Current: Yes Migraines: Yes Influenza Vaccination: No ?: Not : 1 Para: 1 Past Surgical History Surgical History: No Previous Surgery Social History Alcohol Use: No Tobacco Use: No Substance Use: No Allergies-Medications (Allergen,Severity, Reaction): Coded Allergies: amoxicillin (Verified Allergy, Severe, Hives, 11/13/17) penicillin G (Verified Allergy, Mild, Hives, 11/13/17) Uncoded Allergies: CANTELOPE MELON (Allergy, Mild, Hives, 07/26/11) HONEYDEW (Allergy, Mild, Hives, 07/26/11) Reported Meds & Prescriptions Reported Meds & Active Scripts Active Ibuprofen 800 Mg Tab 800 Mg PO Q8H PRN Glucocom Test Strips (Blood Glucose Test Strips) 1 Brooke Brooke Ea .ROUTE DIRECTED Check blood glucose four times/day. One fasting, and 2 hours post meal after each meal. Sharpsafety Sharps Contai (Parenteral Therapy Supplies) 1 Mis Mis Ea .ROUTE DIRECTED Lancets 1 Mis Mis Ea .ROUTE DIRECTED Glucocom Blood Glucose Mo W/Device (Device) 1 Kit Kit Kit .ROUTE DIRECTED Review of Systems Except as stated in HPI: all other systems reviewed are Neg Physical Exam Narrative GENERAL: Well-developed well-nourished female in no acute distress no respiratory distress with triage blood pressure: 152/93 SKIN: Warm and dry. HEAD: Normocephalic. EYES: No scleral icterus. No injection or drainage. NECK: Supple, trachea midline. No JVD or lymphadenopathy. CARDIOVASCULAR: Regular rate and rhythm without murmurs, gallops, or rubs. RESPIRATORY: Breath sounds equal bilaterally. No accessory muscle use. GASTROINTESTINAL: Abdomen soft, non-tender, nondistended. MUSCULOSKELETAL: No cyanosis, bilateral lower leg and pedal edema. BACK: Nontender without obvious deformity. No CVA tenderness. Data Data Last Documented VS Vital Signs Date Time Temp Pulse Resp B/P (MAP) Pulse Ox O2 Delivery O2 Flow Rate FiO2 11/13/17 23:24 86 15 169/105 (126) 96 Room Air 11/13/17 19:09 97.8 Orders Orders Complete Blood Count With Diff (11/13/17 19:38) Comprehensive Metabolic Panel (11/13/17 19:38) Urinalysis - C+S If Indicated (11/13/17 19:38) Ecg Monitoring (11/13/17 19:46) Blood Pressure (11/13/17 19:46) Iv Access Insert/Monitor (11/13/17 19:46) Oximetry (11/13/17 19:46) Vital Signs (11/13/17 19:46) Urine Culture (11/13/17 20:00) Nifedipine Sr (Procardia Xl) (11/13/17 21:30) Admit Order (Ed Use Only) (11/13/17 ) Electrical Engineering Designer / Telemetry STANTON.Q8H (11/13/17 23:27) Activity Oob With Assistance (11/13/17 23:27) Notify Dr: Other (11/13/17 23:27) Labs Laboratory Tests Test 11/13/17 20:00 White Blood Count 8.4 TH/MM3 Red Blood Count 4.01 MIL/MM3 Hemoglobin 10.4 GM/DL Hematocrit 32.5 % Mean Corpuscular Volume 80.9 FL Mean Corpuscular Hemoglobin 25.9 PG Mean Corpuscular Hemoglobin Concent 32.1 % Red Cell Distribution Width 14.6 % Platelet Count 172 TH/MM3 Mean Platelet Volume 9.7 FL Neutrophils (%) (Auto) 73.3 % Lymphocytes (%) (Auto) 18.4 % Monocytes (%) (Auto) 5.4 % Eosinophils (%) (Auto) 2.7 % Basophils (%) (Auto) 0.2 % Neutrophils # (Auto) 6.2 TH/MM3 Lymphocytes # (Auto) 1.5 TH/MM3 Monocytes # (Auto) 0.5 TH/MM3 Eosinophils # (Auto) 0.2 TH/MM3 Basophils # (Auto) 0.0 TH/MM3 CBC Comment DIFF FINAL Differential Comment Urine Color YELLOW Urine Turbidity HAZY Urine pH 6.5 Urine Specific Blackwell 1.011 Urine Protein NEG mg/dL Urine Glucose (UA) NEG mg/dL Urine Ketones NEG mg/dL Urine Occult Blood LARGE Urine Nitrite NEG Urine Bilirubin NEG Urine Leukocyte Esterase LARGE Urine RBC 100-200 /hpf Urine WBC 20-24 /hpf Urine Squamous Epithelial Cells 0-5 /hpf Urine Bacteria OCC /hpf Microscopic Urinalysis Comment CULTURE INDICATED Blood Urea Nitrogen 8 MG/DL Creatinine 0.58 MG/DL Random Glucose 78 MG/DL Total Protein 6.2 GM/DL Albumin 2.6 GM/DL Calcium Level 8.0 MG/DL Alkaline Phosphatase 164 U/L Aspartate Amino Transf (AST/SGOT) 50 U/L Alanine Aminotransferase (ALT/SGPT) 43 U/L Total Bilirubin 0.2 MG/DL Sodium Level 140 MEQ/L Potassium Level 4.0 MEQ/L Chloride Level 106 MEQ/L Carbon Dioxide Level 25.0 MEQ/L Anion Gap 9 MEQ/L Estimat Glomerular Filtration Rate 125 ML/MIN MDM Medical Decision Making Medical Screen Exam Complete: Yes Emergency Medical Condition: Yes Medical Record Reviewed: Yes Interpretation(s) UA: No protein no glucose CBC & BMP Diagram 11/13/17 20:00 Total Protein 6.2 L, Albumin 2.6 L, Calcium Level 8.0 L, Alkaline Phosphatase 164 H, Aspartate Amino Transf (AST/SGOT) 50 H, Alanine Aminotransferase (ALT/ SGPT) 43, Total Bilirubin 0.2 Vital Signs Date Time Temp Pulse Resp B/P (MAP) Pulse Ox O2 Delivery O2 Flow Rate FiO2 11/13/17 21:30 77 15 167/88 (114) 100 Room Air 11/13/17 20:30 98 11/13/17 20:30 69 15 165/90 (115) 98 Room Air 162/91 (114) 11/13/17 20:30 69 15 162/91 (114) 98 11/13/17 19:09 97.8 87 18 152/93 (112) 100 Differential Diagnosis -induced hypertension preeclampsia help syndrome Narrative Course Patient placed on alarm security or surveillance monitor with continuous monitoring and pulse oximetry IV access obtained specimens collected and sent for resulting serial blood pressures obtained Discussed with OB ED Dr. Grove recommends Procardia XL 30 mg now and daily at bedtime recommends repeat blood pressure 30 minutes after Procardia XL 30 and blood pressure remains elevated 160/90 with would like to be notified @ 10:20 168/95, 150/109 recheck at 1 hour --will make disposition based upon BP at that time @ 2300 173/97 @ 2320 bp: 169/105, call placed to Dr Alves --transfer to [facility] L&[facility] for obs admission Physician Communication Physician Communication Discussed with Dr Alves OB ED --give procadia xl 30 now and qhs --return to [facility] ob ed for BP:165/105; @ 23:20 transfer for OB ED for obs admission Diagnosis Primary Impression: hypertension Admitting Information Admitting Physician Requests: Observation Yojana Rod MD Nov 13, 2017 19:45
[2017-11-13 20:07] LABS: BILIRUBIN, URINE NEG (NEG); BLOOD, URINE LARGE (NEG); GLUCOSE,URINE NEG (NEG); KETONE, URINE NEG (NEG); NITRITE,URINE NEG (NEG); PH, URINE 6.5 (5.0-8.5); URINE LEUKOCYTE ESTERASE LARGE (NEG)
[2017-11-13 20:08] LABS: AUTOMATED NEUTROPHIL # 6.2 TH/MM3 (1.8-7.7); BASOPHIL % 0.2 % (0.0-2.0); EOSINOPHIL # 0.2 TH/MM3 (0-0.4); EOSINOPHIL % 2.7 % (0.0-4.0); HEMATOCRIT 32.5 % (35.0-46.0); HEMOGLOBIN 10.4 GM/DL (11.6-15.3); LYMPH % 18.4 % (9.0-44.0); LYMPHOCYTE # 1.5 TH/MM3 (1.0-4.8); MEAN CELL VOLUME 80.9 FL (80.0-100.0); MEAN CORPUSCULAR HEMOGLOBIN 25.9 PG (27.0-34.0); MEAN CORPUSCULAR HGB CONC 32.1 % (32.0-36.0); MEAN PLATELET VOLUME 9.7 FL (7.0-11.0); MONO % 5.4 % (0.0-8.0); MONOCYTE # 0.5 TH/MM3 (0-0.9); NEUT % 73.3 % (16.0-70.0); PLATELET COUNT 172 TH/MM3 (150-450); RED BLOOD COUNT 4.01 MIL/MM3 (4.00-5.30); RED CELL DISTRIBUTION WIDTH 14.6 % (11.6-17.2); WHITE BLOOD COUNT 8.4 TH/MM3 (4.0-11.0)
[2017-11-13 20:10] LABS: URINE COLOR YELLOW (YELLW/STRAW)
[2017-11-13 20:15] LABS: BACTERIA, URINE OCC /hpf; RBC, URINE 100-200 /hpf (0-3); SQUAMOUS EPITHELIAL CELL URINE 0-5 /hpf (0-5)
[2017-11-13 20:22] LABS: CHLORIDE 106 MEQ/L (98-107); SODIUM (NA) 140 MEQ/L (136-145)
[2017-11-13 20:26] LABS: ALBUMIN 2.6 GM/DL (3.4-5.0); BLOOD UREA NITROGEN 8 MG/DL (7-18); GLUCOSE,RANDOM 78 MG/DL (74-106)
[2017-11-13 20:29] LABS: ALT (GPT) 43 U/L (10-53); AST (GOT) 50 U/L (15-37); CREATININE 0.58 MG/DL (0.50-1.00); GLOMERULAR FILTRATION RATE 125 ML/MIN (>89)
[2017-11-13 20:30] VITALS: BP_SYST 162; BP_SYST 165; BP_DIAS 90; BP_DIAS 91; PULSE 69; RESP 15; O2SAT 98
[2017-11-13 20:30] LABS: TOTAL BILIRUBIN ADULT 0.2 MG/DL (0.2-1.0); TOTAL PROTEIN 6.2 GM/DL (6.4-8.2)
[2017-11-13 20:32] LABS: ALKALINE PHOSPHATASE 164 U/L (45-117)
[2017-11-13 21:30] VITALS: BP 167/88; PULSE 77; RESP 15; O2SAT 100
[2017-11-13] MEDS ORDERED: NIFEdipine 30 MG SUSTAINED RELEASE TAB PO ONE (21:30)
[2017-11-13 23:24] VITALS: BP 169/105; PULSE 86; RESP 15; O2SAT 96
[2017-11-14] VITALS (165 sets, daily range): BP systolic 124–180; BP diastolic 64–99; PULSE 71–121; RESP 15–20; TEMP 98–98.4; O2SAT 94–100
[2017-11-14] MEDS ORDERED: SODIUM CHLORIDE 0.9% FLUSH 10 ML FLUSH IV FLUSH PRN (02:15)
[2017-11-14] MEDS ORDERED: LABETALOL HCL 100 MG/20 ML VIAL IV PUSH PRN ×3 (02:15→02:45)
[2017-11-14] MEDS ORDERED: DOCUSATE SODIUM 100 MG CAP PO PRN (02:15)
[2017-11-14] MEDS ORDERED: hydrALAZINE HCL 20 MG/ML VIAL IV PUSH PRN ×2 (02:15→02:45)
[2017-11-14] MEDS ORDERED: CALCIUM GLUCONATE 10% 1 GM/10 ML VIAL IV PUSH PRN (02:15)
[2017-11-14] MEDS ORDERED: ONDANSETRON HCL 4 MG/2 ML VIAL IV PUSH PRN (02:15)
[2017-11-14] MEDS ORDERED: MAGNESIUM SULFATE 4 GM PREMIX 100 ML IV ONE (02:15)
[2017-11-14] MEDS ORDERED: NIFEdipine 10 MG CAP PO PRN ×2 (02:15→02:45)
[2017-11-14] MEDS ORDERED: LIDOCAINE 2% JELLY 30 ML TUBE TOPICAL SCH (03:00)
[2017-11-14] MEDS: LACTATED RINGER'S 1000 ML INJ 1,000 ML IV SCH ×2 (03:17→15:49)
[2017-11-14] MEDS: ACETAMINOPHEN 325 MG TAB PO PRN ×2 (03:20→11:13)
[2017-11-14] MEDS: MAGNESIUM SULFATE 40 GM PREMIX 1,000 ML IV SCH ×2 (03:20→20:12)
--- NOTE | 2017-11-14 06:40 | HHI.HP ---
HPI Chief Complaint elevated BPs PP Date Seen: Nov 14, 2017 Time Seen: 06:26 Travel History International Travel<30 Days: No Contact w/Intl Traveler<30Days: No Known Affected Area: No History of Present Illness HPI Pt is a 27y/o PPD #4 s/p . She had PIH at delivery. PP BPs were mild range. She was sent home yesterday and presented last evening to the local ED with elevated BPs at home 170s/100s. I was notified of pt status and BPs in the ED of 160/90. She received 30mg procardia XL x1 and BPs were unchanged. She was transferred here. Pt reports dull EDWARDS. No visual disturbances. Appropriate lochia. She is breast /bottle feeding. Weeks Gestation: 0 Para: 1 : 1 History Past Medical History Medical History: Denies Significant Hx Obstetric History Obstetric History x1 Past Surgical History Surgical History: No Previous Surgery Family History Family History: Negative Social History Alcohol Use: No Tobacco Use: No Substance Abuse: No Allergies-Medications (Allergen,Severity, Reaction): Coded Allergies: amoxicillin (Verified Allergy, Severe, Hives, 11/13/17) penicillin G (Verified Allergy, Mild, Hives, 11/13/17) Uncoded Allergies: CANTELOPE MELON (Allergy, Mild, Hives, 07/26/11) HONEYDEW (Allergy, Mild, Hives, 07/26/11) Home Meds Active Scripts Ibuprofen (Ibuprofen) 800 Mg Tab, 800 MG PO Q8H Y for CRAMPING, #30 TAB Prov:Courtney Infante MD, R3 11/12/17 Glucocom Test Strips (Glucocom Test Strips) 1 Brooke Brooke, EA .ROUTE DIRECTED for Blood Sugar Management, #1 Check blood glucose four times/day. One fasting, and 2 hours post meal after each meal. Prov:Courtney Infante MD, R3 10/26/17 Parenteral Therapy Supplies (Sharpsafety Sharps Contai) 1 Mis Sugar EA .ROUTE DIRECTED, #1 0 Refills Prov:Courtney Infante MD, R3 09/29/17 Lancets (Lancets) 1 Mis Sugar, EA .ROUTE DIRECTED for Blood Sugar Management, # 1 0 Refills Prov:Courteny Infante MD, R3 09/29/17 Blood Glucose Monitoring W/Device (Glucocom Blood Glucose Mo W/Device) 1 Kit Kit , KIT .ROUTE DIRECTED for Blood Sugar Management, #1 Prov:Courtney Infante MD, R3 09/29/17 Discontinued Scripts Sennosides-Docusate Sodium (Gnp Senna Plus 8.6-50 mg) 8.6 Mg-50 Mg Tab, 2 TAB PO Q12H Y for CONSTIPATION, #60 TAB Prov:Courtney Infante MD, R3 11/12/17 Vit W/ Ferrous Fumara (Pnv Plus Multivi 27-1 mg) 1 Tab Tab, 1 TAB PO DAILY, #90 TAB 3 Refills Prov:Courtney Infante MD, R3 06/23/17 Review of Systems Except as stated in HPI: all other systems reviewed are Neg Physical Exam Vital Signs Date Time Temp Pulse Resp B/P (MAP) Pulse Ox O2 Delivery O2 Flow Rate FiO2 11/14/17 05:13 18 11/14/17 05:01 81 132/67 (88) 11/14/17 05:00 18 11/14/17 04:59 79 125/68 (87) 11/14/17 04:46 79 134/71 (92) 11/14/17 04:31 81 140/74 (96) 11/14/17 04:22 18 11/14/17 04:16 81 142/75 (97) 11/14/17 04:01 87 142/75 (97) 11/14/17 04:00 18 11/14/17 03:46 89 143/74 (97) 11/14/17 03:31 90 139/75 (96) 11/14/17 03:26 86 146/75 (98) 11/14/17 03:21 87 135/72 (93) 11/14/17 03:16 80 145/73 (97) 11/14/17 03:15 18 11/14/17 03:13 71 143/70 (94) 11/14/17 03:09 82 155/86 (109) 11/14/17 02:32 11/14/17 00:44 98.4 75 15 180/99 (126) 100 Room Air 11/13/17 23:24 86 15 169/105 (126) 96 Room Air 11/13/17 21:30 77 15 167/88 (114) 100 Room Air 11/13/17 20:30 98 11/13/17 20:30 69 15 165/90 (115) 98 Room Air 162/91 (114) 11/13/17 20:30 69 15 162/91 (114) 98 11/13/17 19:09 97.8 87 18 152/93 (112) 100 Narrative General: well developed, well nourished, no acute distress HEENT: normocephalic atraumatic, extraocular movements intact, neck supple Abdomen: soft, nontender, nondistended Extremities: full range of motion, 2+ reflexes, 1+ edema Skin: normal coloration, no rashes, no suspicious skin lesions noted Neurologic: cranial nerves 2-12 grossly intact Psychiatric: normal mood and affect, appropriate Caprini VTE Risk Assessment Caprini VTE Risk Assessment: Mod/High Risk (score >= 2) Caprini Risk Assessment Model Point Value = 1 Point Value = 2 Point Value = 3 Point Value = 5 Age 41-60 Minor surgery BMI > 25 kg/m2 Swollen legs Varicose veins or History of unexplained or recurrent spontaneous Oral contraceptives or hormone replacement Sepsis (< 1 month) Serious lung disease, including pneumonia (< 1 month) Abnormal pulmonary function Acute myocardial infarction Congestive heart failure (< 1 month) History of inflammatory bowel disease Medical patient at bed rest Age 61-74 Arthroscopic surgery Major open surgery (> 45 min) Laparoscopic surgery (> 45 min) Malignancy Confined to bed (> 72 hours) Immobilizing plaster cast Central venous access Age >= 75 History of VTE Family history of VTE Factor V Leiden Prothrombin [id number] Lupus anticoagulant Anticardiolipin antibodies Elevated serum homocysteine Heparin-induced thrombocytopenia Other congenital or acquired thrombophilia Stroke (< 1 month) Elective arthroplasty Hip, pelvis, or leg fracture Acute spinal cord injury (< 1 month) Prophylaxis Regimen Total Risk Factor Score Risk Level Prophylaxis Regimen 0-1 Low Early ambulation 2 Moderate Order ONE of the following: *Sequential Compression Device (SCD) *Heparin 5000 units SQ BID 3-4 Higher Order ONE of the following medications: *Heparin 5000 units SQ TID *Enoxaparin/Lovenox 40 mg SQ daily (WT < 150 kg, CrCl > 30 mL/min) *Enoxaparin/Lovenox 30 mg SQ daily (WT < 150 kg, CrCl > 10-29 mL/min) *Enoxaparin/Lovenox 30 mg SQ BID (WT < 150 kg, CrCl > 30 mL/min) AND/OR *Sequential Compression Device (SCD) 5 or more Highest Order ONE of the following medications: *Heparin 5000 units SQ TID (Preferred with Epidurals) *Enoxaparin/Lovenox 40 mg SQ daily (WT < 150 kg, CrCl > 30 mL/min) *Enoxaparin/Lovenox 30 mg SQ daily (WT < 150 kg, CrCl > 10-29 mL/min) *Enoxaparin/Lovenox 30 mg SQ BID (WT < 150 kg, CrCl > 30 mL/min) AND *Sequential Compression Device (SCD) Data Data Vital Signs Reviewed: Yes Orders Orders Complete Blood Count With Diff (11/13/17 19:38) Comprehensive Metabolic Panel (11/13/17 19:38) Urinalysis - C+S If Indicated (11/13/17 19:38) Ecg Monitoring (11/13/17 19:46) Blood Pressure (11/13/17 19:46) Iv Access Insert/Monitor (11/13/17 19:46) Oximetry (11/13/17 19:46) Vital Signs (11/13/17 19:46) Urine Culture (11/13/17 20:00) Nifedipine Sr (Procardia Xl) (11/13/17 21:30) Admit Order (Ed Use Only) (11/13/17 ) Resident Care Director / Telemetry STANTON.Q8H (11/13/17 23:27) Activity Oob With Assistance (11/13/17 23:27) Notify Dr: Other (11/13/17 23:27) Vital Signs (Adult) Q5MX4,Q15MX4,Q30MX2,Q1H (11/14/17 02:11) Resp Pulse Oximetry (11/14/17 ) Activity Bed Rest (11/14/17 02:11) Intake + Output Q1H (11/14/17 02:11) Notify Parameters (11/14/17 02:11) Urinary Catheter Management STANTON.Q8H (11/14/17 02:11) ^ Check Deep Tendon Reflexes Q1H (11/14/17 02:11) Diet Liquid (11/14/17 Breakfast) Lactated Ringer's 1000 Ml Inj (Lr 1000 M (11/14/17 02:11) Sodium Chloride 0.9% Flush (Ns Flush) (11/14/17 02:15) Sodium Chloride 0.9% Flush (Ns Flush) (11/14/17 09:00) Magnesium Sulfate 40 Gm Premix (Magnesiu (11/14/17 02:11) Nifedipine (Procardia) (11/14/17 02:15) Nifedipine (Procardia) (11/14/17 02:45) Labetalol Inj (Trandate Inj) (11/14/17 02:15) Labetalol Inj (Trandate Inj) (11/14/17 02:30) Labetalol Inj (Trandate Inj) (11/14/17 02:45) Hydralazine Inj (Apresoline Inj) (11/14/17 02:15) Hydralazine Inj (Apresoline Inj) (11/14/17 02:45) Calcium Gluconate Inj (Calcium Gluconate (11/14/17 02:15) Acetaminophen (Tylenol) (11/14/17 02:15) Ondansetron Inj (Zofran Inj) (11/14/17 02:15) Docusate Sodium (Colace) (11/14/17 02:15) Ldiffbgq-Zcd-Jdtci-Iron Prenat (Stuartna (11/14/17 09:00) Hepatic Functional Panel (11/15/17 06:00) Cbc No Diff, Includes Plts (11/15/17 06:00) Magnesium Sulfate 4 Gm Premix (Magnesium (11/14/17 02:15) Nifedipine Sr (Procardia Xl) (11/14/17 18:00) Lidocaine 2% Jelly (Xylocaine 2% Jelly) (11/14/17 03:00) Labs Laboratory Tests Test 11/13/17 20:00 White Blood Count 8.4 Red Blood Count 4.01 Hemoglobin 10.4 Hematocrit 32.5 Mean Corpuscular Volume 80.9 Mean Corpuscular Hemoglobin 25.9 Mean Corpuscular Hemoglobin Concent 32.1 Red Cell Distribution Width 14.6 Platelet Count 172 Mean Platelet Volume 9.7 Neutrophils (%) (Auto) 73.3 Lymphocytes (%) (Auto) 18.4 Monocytes (%) (Auto) 5.4 Eosinophils (%) (Auto) 2.7 Basophils (%) (Auto) 0.2 Neutrophils # (Auto) 6.2 Lymphocytes # (Auto) 1.5 Monocytes # (Auto) 0.5 Eosinophils # (Auto) 0.2 Basophils # (Auto) 0.0 CBC Comment DIFF FINAL Differential Comment Urine Color YELLOW Urine Turbidity HAZY Urine pH 6.[address] [place] 1.011 Urine Protein NEG Urine Glucose (UA) NEG Urine Ketones NEG Urine Occult Blood LARGE Urine Nitrite NEG Urine Bilirubin NEG Urine Leukocyte Esterase LARGE Urine RBC 100-200 Urine WBC 20-24 Urine Squamous Epithelial Cells 0-5 Urine Bacteria OCC Microscopic Urinalysis Comment CULTURE INDICATED Blood Urea Nitrogen 8 Creatinine 0.58 Random Glucose 78 Total Protein 6.2 Albumin 2.6 Calcium Level 8.0 Alkaline Phosphatase 164 Aspartate Amino Transf (AST/SGOT) 50 Alanine Aminotransferase (ALT/SGPT) 43 Total Bilirubin 0.2 Sodium Level 140 Potassium Level 4.0 Chloride Level 106 Carbon Dioxide Level 25.0 Anion Gap 9 Estimat Glomerular Filtration Rate 125 Date/Time Source Procedure Growth Status 11/13/17 20:00 Urine Clean Catch Urine Culture Pending Received Assessment/Plan Assessment and Plan 27y/o PPD#4 with preE, ?HELLP. -- BPs 168-173/95-109 at the ED -- plts 172, AST 50, ALT 43 -- s/p procardia 30mg XL x1 in ED; cont qday -- transferred to [facility] -- [facility] admission, mag 4/2, faith, CLD -- HTN protocol initiated -- monitor closely -- no NSAIDs Nusrat Alves MD Nov 14, 2017 06:40
[2017-11-14] MEDS: SODIUM CHLORIDE 0.9% FLUSH 10 ML FLUSH IV FLUSH SCH ×2 (09:00→21:00)
[2017-11-14] MEDS ORDERED: MULTIVIT/MIN/PREN/FOL AC/IRON PRENATAL TAB PO SCH (09:00)
[2017-11-14] MEDS ORDERED: MORPHINE SULFATE 2 MG/ML INJ IV ONE (15:45)
[2017-11-14] MEDS ORDERED: NIFEdipine 30 MG SUSTAINED RELEASE TAB PO SCH (21:00)
[2017-11-15 00:01] VITALS: BP 130/65; PULSE 95
[2017-11-15] MEDS: ACETAMINOPHEN 325 MG TAB PO PRN (00:07)
[2017-11-15 01:01] VITALS: BP 123/60; PULSE 87
[2017-11-15 02:01] VITALS: BP 141/75; PULSE 92
[2017-11-15 02:58] VITALS: BP 127/62; PULSE 96
[2017-11-15] MEDS: LACTATED RINGER'S 1000 ML INJ 1,000 ML IV SCH (04:51)
[2017-11-15 07:30] LABS: HEMATOCRIT 33.5 % (35.0-46.0); HEMOGLOBIN 11.2 GM/DL (11.6-15.3); MEAN CELL VOLUME 81.4 FL (80.0-100.0); MEAN CORPUSCULAR HEMOGLOBIN 27.3 PG (27.0-34.0); MEAN CORPUSCULAR HGB CONC 33.6 % (32.0-36.0); MEAN PLATELET VOLUME 9.5 FL (7.0-11.0); PLATELET COUNT 238 TH/MM3 (150-450); RED BLOOD COUNT 4.11 MIL/MM3 (4.00-5.30); RED CELL DISTRIBUTION WIDTH 15.8 % (11.6-17.2); WHITE BLOOD COUNT 8.5 TH/MM3 (4.0-11.0)
[2017-11-15 07:50] LABS: ALBUMIN 2.6 GM/DL (3.4-5.0); DIRECT BILIRUBIN ADULT 0.1 MG/DL (0.0-0.2)
[2017-11-15 07:52] LABS: INDIRECT BILIRUBIN 0.2 MG/DL (0.0-0.8); TOTAL BILIRUBIN ADULT 0.3 MG/DL (0.2-1.0); TOTAL PROTEIN 6.3 GM/DL (6.4-8.2)
[2017-11-15] MEDS ORDERED: ACETAMIN 325 MG/BUTALBITAL 50 MG/CAFFEINE 40 MG TAB PO PRN (08:15)
--- NOTE | 2017-11-15 09:17 | HHI.PR ---
[facility] Note Note Subjective: Patient is doing better this morning. She still has frontal headache that is worsened with head movement, but denies chest pain, shortness of breath, RUQ, blurry vision, or worsened pedal edema. Notably, patient does have a history of chronic migraines for most of her life. Objective: Vital Signs Date Time Temp Pulse Resp B/P (MAP) Pulse Ox O2 Delivery O2 Flow Rate FiO2 11/15/17 02:58 96 127/62 (83) 11/15/17 02:01 92 141/75 (97) 11/15/17 01:01 87 123/60 (81) 11/15/17 00:01 95 130/65 (86) 11/14/17 23:01 106 141/85 (103) 11/14/17 22:01 98 149/82 (104) 11/14/17 21:01 96 149/75 (99) 11/14/17 20:49 101 154/79 (104) 11/14/17 20:09 100 11/14/17 20:06 108 152/83 (106) 11/14/17 20:00 20 11/14/17 20:00 98.2 11/14/17 18:51 104 149/87 (107) 11/14/17 18:50 105 99 11/14/17 18:45 110 98 11/14/17 18:40 110 98 11/14/17 18:35 109 98 11/14/17 18:30 111 97 11/14/17 18:25 110 97 11/14/17 18:20 112 96 11/14/17 18:15 114 95 11/14/17 18:10 113 96 11/14/17 18:05 107 96 11/14/17 18:01 111 126/83 (97) 11/14/17 18:00 106 94 11/14/17 17:55 110 96 11/14/17 17:50 121 96 11/14/17 17:40 110 98 11/14/17 17:35 114 99 11/14/17 17:30 110 99 11/14/17 17:25 108 98 11/14/17 17:20 97 11/14/17 17:20 109 11/14/17 17:15 96 11/14/17 17:15 104 11/14/17 17:10 98 96 12/23/17 17:05 100 96 17 17:01 101 133/76 (95) 17 17:00 101 96 17 16:55 101 97 17 16:50 101 96 17 16:45 105 98 17 16:40 97 95 17 16:35 96 95 17 16:30 97 96 17 16:25 98 95 17 16:20 95 95 17 16:15 97 96 17 16:10 92 94 17 16:05 93 94 17 16:01 96 127/71 (89) 17 16:00 95 95 17 15:55 98 95 17 15:50 96 96 17 15:45 97 96 17 15:40 98 96 17 15:35 97 96 17 15:30 100 97 17 15:25 98 95 17 15:20 106 98 17 15:15 99 95 17 15:10 100 96 17 15:05 109 98 17 15:04 108 130/70 (90) 11/14/17 15:00 101 97 17 15:00 18 11/14/17 14:55 102 96 17 14:50 102 96 17 14:45 99 97 17 14:40 101 96 17 14:35 99 96 17 14:30 100 97 17 14:25 95 97 17 14:20 93 96 17 14:15 93 96 17 14:10 95 95 17 14:05 92 95 17 14:01 98 150/81 (104) 17 14:00 93 95 17 13:55 92 95 17 13:50 95 94 11/14/17 13:45 102 97 17 13:40 98 95 17 13:35 99 96 12/23/17 13:30 98 96 11/14/17 13:25 98 95 11/14/17 13:20 95 95 11/14/17 13:15 95 96 11/14/17 13:10 96 95 11/14/17 13:05 94 96 11/14/17 13:01 96 139/74 (95) 11/14/17 13:00 98 95 11/14/17 12:20 104 97 11/14/17 12:15 101 95 11/14/17 12:10 98 94 11/14/17 12:05 106 96 11/14/17 12:01 101 134/64 (87) 11/14/17 12:00 97 94 11/14/17 11:15 119 96 11/14/17 11:10 118 98 11/14/17 11:05 114 97 11/14/17 11:01 111 137/79 (98) 11/14/17 11:00 109 98 11/14/17 10:55 121 98 11/14/17 10:50 108 98 11/14/17 10:46 98.0 11/14/17 10:45 97 96 11/14/17 10:40 99 98 11/14/17 10:35 97 98 11/14/17 10:30 102 100 11/14/17 10:25 90 97 11/14/17 10:20 88 97 11/14/17 10:15 81 97 11/14/17 10:10 85 97 11/14/17 10:05 80 97 11/14/17 10:01 89 133/76 (95) 11/14/17 10:00 83 95 11/14/17 09:37 20 Result Diagram: 11/15/17 0701 11/13/171999 EXAM General: Well developed, well-nourished female of stated age in NAD CV: RRR Resp: CTAB, no increased work of breathing Abdomen: Soft, obese, non-tender, non-distended Skin: Warm and dry, no obvious rashes Psych: Appears tired but AOx3 Assessment: 27y/o PPD #4 s/p , history of PIH at delivery, admitted for elevated BPs at home, confirmed in the [facility] ED Plan: -BPs downtrended to 123-149/60-85 overnight on Procardia -Completed magnesium neuroprotection protocol -Plts increased from 172 on admission to 238 this am -AST 41 decreased from 50 on 11/13 -Patient also improved clinically in 24 hours -Plan to discharge home today on Procardia XL for BP control -Fioricet for headache -Follow up with OB provider as scheduled for Nov 17, 2017 Meredith Chase MD R2 Nov 15, 2017 09:17
[2017-11-15] MEDS ORDERED: Acet-Butal-Caff 325-50-40 Mg PO (09:18)
[2017-11-15] MEDS ORDERED: NIFE30TA8 PO (09:18)
--- NOTE | 2017-11-15 09:19 | HHI.DCPOC ---
Discharge Care Plan Diagnosis: (1) PIH ( induced hypertension) (2) hypertension Report Symptoms to Your Doctor -Temperature above 100.5 degrees -Redness, of incision or excessive or foul smelling drainage -Unusual pain or calf pain -Increased vaginal bleeding -Painful or difficulty urinating -Feelings of extreme sadness or anxiety after 2 weeks Goals to Promote Your Health * To prevent worsening of your condition and complications * To maintain your health at the optimal level Directions to Meet Your Goals Take your medications as prescribed Follow your dietary instruction Follow activity as directed Ensure plenty of rest for recovery Drink fluids for hydration Keep your appointments as scheduled Take your immunizations and boosters as scheduled If your symptoms worsen call your PCP, if no PCP go to Urgent Care Center or Emergency Room Smoking is Dangerous to Your Health. Avoid second hand smoke Call the 24-hour crisis hotline for domestic abuse at Meredith Chase MD R2 Nov 15, 2017 09:19
== END 2017-11-15 16:35 | disposition home or self-care (01) ==
LOC: PHED 19:05 → PHEDA 23:37 → H2EA 11-14 02:53
PROVIDERS: ADMIT Obstetrics & Gynecology; ATTEND Obstetrics & Gynecology
DX: O13.5 Gestational [pregnancy-induced] hypertension without significant proteinuria, complicating the puerperium (principal); Z87.891 Personal history of nicotine dependence
CPT/HCPCS: 80053; 80076; 81001; 85025; 85027; 87086; 96374; 96375; 96376; 99285; G0378; J2270; J3010; J3475; J7120

== ENCOUNTER 2018-02-19 22:15 | Emergency (ER) | payer MEDICAID ==
[~2018-02-19] VITALS: Ht 160 cm; Wt 122.0 kg
[~2018-02-19 22:15] MED LIST changes: +Acet-Butal-Caff 325-50-40 Mg PO; -IBUP1TAB7 PO; +NIFE30TA8 PO; +NORE0.3513 PO; -PERI PO; -PRENTAB85 PO
[2018-02-19 22:44] VITALS: BP 147/70; PULSE 98; RESP 14; TEMP 99.7; O2SAT 99
[2018-02-19 23:13] LABS: BILIRUBIN, URINE NEG (NEG); BLOOD, URINE NEG (NEG); GLUCOSE,URINE NEG (NEG); KETONE, URINE NEG (NEG); NITRITE,URINE NEG (NEG); URINE COLOR YELLOW (YELLW/STRAW); URINE LEUKOCYTE ESTERASE NEG (NEG)
--- NOTE | 2018-02-19 23:17 | PD ---
HPI Chief Complaint: Physiotherapy Assistant Problem/Complaint Time Seen by Provider: 22:50 Travel History International Travel<30 days: No Contact w/Intl Traveler<30days: No Traveled to known affect area: No History of Present Illness HPI While 27-year-old woman who presents emerged from complaining of vaginal itching , pruritus, with irritation and pain. She has vaginal discharge as well. Sexually active one male partner. Denies any symptoms. No abdominal pain. A little bit of dysuria. History Past Medical History Narrative Medical Anxiety LMP: 01/19/18 : 1 Para: 1 Social History Alcohol Use: No Tobacco Use: No Allergies-Medications (Allergen,Severity, Reaction): Coded Allergies: amoxicillin (Verified Allergy, Severe, Hives, 02/19/18) penicillin G (Verified Allergy, Mild, Hives, 02/19/18) Uncoded Allergies: CANTELOPE MELON (Allergy, Mild, Hives, 07/26/11) HONEYDEW (Allergy, Mild, Hives, 07/26/11) Reported Meds & Prescriptions Reported Meds & Active Scripts Active Glucocom Test Strips (Blood Glucose Test Strips) 1 Brooke Brooke Ea .ROUTE DIRECTED Check blood glucose four times/day. One fasting, and 2 hours post meal after each meal. Lancets 1 Mis Mis Ea .ROUTE DIRECTED Lisseth-35 (Norethindrone) 0.35 Mg Tab 1 Tab PO DAILY Nifedipine ER 24 HR (Nifedipine) 30 Mg Tab 30 Mg PO HS [[id number]-[id number] 325-50-40 Mg] 1 TAB Tab 1 Tab PO Q6H PRN Sharpsafety Sharps Contai (Parenteral Therapy Supplies) 1 Mis Mis Ea .ROUTE DIRECTED Glucocom Blood Glucose Mo W/Device (Device) 1 Kit Kit Kit .ROUTE DIRECTED Review of Systems Except as stated in HPI: all other systems reviewed are Neg Physical Exam Narrative GENERAL: Well-appearing 27-year-old woman, no acute distress. SKIN: Warm and dry. CARDIOVASCULAR: Warm and well perfused. RESPIRATORY: Normal rate and effort. ABDOMEN: Obese, soft. No tenderness. NEUROLOGICAL: Awake and alert. No gross deficits. : Coarse white vaginal discharge. A lot of irritation in the introitus. No tenderness or masses. Data Data Last Documented VS Vital Signs Date Time Temp Pulse Resp B/P (MAP) Pulse Ox O2 Delivery O2 Flow Rate FiO2 02/19/18 22:44 99.7 98 14 147/70 (95) 99 Orders Orders Gc And Chlamydia Pcr (02/19/18 23:04) Wet Prep Profile (02/19/18 23:04) Urinalysis - C+S If Indicated (02/19/18 23:04) Ed Urine Pregnancytest Poc (02/19/18 23:04) Labs Laboratory Tests Test 02/19/18 23:00 02/19/18 23:20 Urine Color YELLOW Urine Turbidity CLEAR Urine pH 5.0 Urine Specific [place] GREATER/EQUAL 1.030 Urine Protein NEG mg/dL Urine Glucose (UA) NEG mg/dL Urine Ketones NEG mg/dL Urine Occult Blood NEG Urine Nitrite NEG Urine Bilirubin NEG Urine Urobilinogen 0.2 MG/DL Urine Leukocyte Esterase NEG Urine RBC 0-3 /hpf Urine WBC 3-5 /hpf Urine Squamous Epithelial Cells > 8 /hpf Urine Bacteria FEW /hpf Urine Yeast (Budding) OCC Microscopic Urinalysis Comment CULT NOT INDICATED Clue Cells (Wet Prep) NONE SEEN Vaginal Trichomonas (Wet Prep) NONE SEEN Vaginal Yeast (Wet Prep) PRESENT MDM Medical Decision Making Medical Screen Exam Complete: Yes Emergency Medical Condition: Yes Differential Diagnosis Vaginitis, cervicitis, UTI, other Narrative Course Medical decision making 27-year-old woman presents to the emergency department complaining of vaginal irritation pain discharge and itching. Likely vaginitis. Will check pelvic, swabs, urine. Diagnosis Primary Impression: Vaginitis Additional Instructions: Take fluconazole in 3 days again if not completely resolved. Follow-up with her overcoiler. Med/Other Pt SpecificInfo: Prescription(s) given Scripts Fluconazole (Fluconazole) 150 Mg Tab 150 MG PO ONCE for Infection, #1 TAB 0 Refills Prov: Dawson Reyes MD 02/19/18 Disposition: 01 DISCHARGE HOME Condition: Stable Dawson Reyes MD Feb 19, 2018 23:17
[2018-02-19 23:22] LABS: BACTERIA, URINE FEW /hpf; RBC, URINE 0-3 /hpf (0-3); SQUAMOUS EPITHELIAL CELL URINE > 8 /hpf (0-5)
[2018-02-19] MEDS ORDERED: FLUCONAZOLE 100 MG TAB PO ONE (23:45)
[2018-02-19] MEDS ORDERED: FLUC150T PO (23:46)
[2018-02-20 00:30] VITALS: BP 141/65
== END 2018-02-20 00:32 | disposition home or self-care (01) ==
LOC: PHED 22:15
DX: N76.0 Acute vaginitis (principal); F41.9 Anxiety disorder, unspecified; Z79.899 Other long term (current) drug therapy; Z88.0 Allergy status to penicillin
CPT/HCPCS: 81001; 84703; 87210; 87491; 87591; 99283